=== PATIENT | female | born 1940 | race Hispanic/Latino ===

== ENCOUNTER 2016-08-28 06:02 | Day surgery (SDC) | payer MEDICARE ==
[2016-08-28] MEDS ORDERED: ECOTRIN PO ONE (06:25)
[2016-08-28] MEDS ORDERED: NACL 0.9% 500 ML 500 ML IV SCH (07:00)
[2016-08-28] MEDS ORDERED: HEPARIN 10,000 UNITS/10 ML ONE (08:32)
[2016-08-28] MEDS ORDERED: CALAN ONE (08:32)
[2016-08-28] MEDS ORDERED: HEPARIN/NS 5000 UNIT/500ML(CATH LAB) 1,000 ML IR ONE (08:32)
[2016-08-28] MEDS ORDERED: VERSED ONE (08:33)
[2016-08-28] MEDS ORDERED: NITROGLYCERIN SYRINGE 3 ML ONE (08:33)
[2016-08-28] MEDS ORDERED: SUBLIMAZE ONE (08:34)
[2016-08-28] MEDS ORDERED: XYLOCAINE 2% INFILTRATI ONE (08:35)
[2016-08-28] MEDS: XYLOCAINE 2% INFILTRATI ONE ×2 (08:47→08:50)
--- NOTE | 2016-08-28 09:49 | Cardiac Catherization Report ---
CARDIAC CATHETERIZATION REPORT REFERRING PHYSICIAN: Devora Caballero MD INDICATION FOR PROCEDURE: This is a pleasant 75-year-old female, infrequent chest pain, history of nonobstructive coronary disease, normal stress test, referred for cardiac catheterization by Dr. Kyung Caballero. Risks, benefits, alternatives discussed at length prior to obtaining informed consent. The patient did not have a good radial pulse, we used a groin approach. PROCEDURE IN DETAIL: The patient were prepped and draped in sterile fashion. An 8 mL of 2% lidocaine used to anesthetize the right groin. A standard 6 Welsh sheath used to cannulate the right common femoral artery via modified Seldinger technique. All exchanges performed to exchange a J-tip guidewire. JL3.5 catheter used to engage left main. No dampening or ventricularization. Cineangiography performed in all projections. JR4 catheter used to cross the aortic valve under fluoroscopic guidance. Left ventriculography performed in 30 MCKEON and 30 CROATIAN projections via hand injections, catheter flushed. Manual pullback performed with continuous pressure monitoring. Catheter used to engage the right coronary. No dampening or ventricularization. Cineangiography performed in multiple projections. Next, catheter removed from the body of wire, sheath removed. Manual pressure used to achieve hemostasis. DATA: The patient remained in normal sinus rhythm throughout the procedure. Aortic pressure is 150/60, LV pressure is 150, LVEDP of 18 to 20 mmHg. Left ventriculography revealed normal systolic performance. Estimated ejection fraction of 55-60%. No evidence of aortic stenosis. Total of 40 mL of Isovue was used. CORONARY ANATOMY: This is a right dominant system, left system is small, left main without significant disease. It bifurcates left anterior descending and left circumflex. Left circumflex is a moderate sized vessel, courses AV groove. No significant disease. Diminutive to AV groove circ. LAD is a small to moderate sized vessel, courses anterior intergroove, wraps around the apex, scattered luminal irregularities, but no significant obstructive disease identified in the LAD or diagonal system. Right coronary is a moderate sized vessel, courses AV groove, distally bifurcates in the posterior and posterolateral branch, no significant stenosis noted. There is a 30-40% mid right coronary stenosis noted, but no obstructive disease identified. CONCLUSIONS: 1. Mild to moderate nonobstructive coronary artery disease in this right dominant system with a maximal narrowing of 30-40% in the mid right coronary. 2. Normal left ventricular systolic performance, estimated ejection fraction of 55-60%. 3. No evidence of aortic stenosis and normal LVEDP. Recommend standard groin care, bed rest for 6 hours, medical management, risk factor modification. Results of procedure discussed at length with the patient and family and her . All questions were addressed. JOB# [id number] SBM/NTS
[2016-08-28 13:49] VITALS: BP 122/80
--- NOTE | 2016-08-28 14:08 | Short Stay Summary ---
Short Stay Documentation Date of service: 08/28/16 - History H&P: obtained from office - Allergies and Medications Current Medications: Allergies No Known Allergies Allergy (Verified 05/07/15 18:52) Home Medications Medication Instructions Recorded Confirmed Last Taken Type Arformoterol Tartrate [Brovana] 15 mcg IH DAILY 03/05/13 08/28/16 08/25/16 History FLUoxetine [PROzac] 20 mg PO QDAY 03/05/13 08/28/16 08/27/16 History Ipratropium [Atrovent NEB] 0.5 mg IH DAILY 03/05/13 08/28/16 08/27/16 History Losartan [Cozaar] 50 mg PO QDAY 03/05/13 08/28/16 08/27/16 History Metoprolol Xl [Metoprolol 25 mg PO QDAY 03/05/13 08/28/16 08/27/16 History SUCCINATE ER TAB] Rosuvastatin Calcium [Crestor] 10 mg PO HS 03/05/13 08/28/16 08/27/16 History Zolpidem [Ambien] 10 mg PO HS 03/05/13 08/28/16 08/27/16 History amLODIPine [Norvasc] 5 mg PO DAILY 03/05/13 08/28/16 08/27/16 History Tiotropium [Spiriva] 2 puff IH QDAY 05/07/15 08/28/16 08/27/16 History Aspirin EC [Aspirin Enteric Coated 81 mg PO QDAY 08/28/16 08/28/16 08/27/16 History TAB] Active Medications Sodium Chloride (Nacl 0.9% 500 Ml) 500 mls @ 50 mls/hr IV DIRECT VIKTORIA Stop: 08/28/16 16:59 Last Admin: 08/28/16 07:10 Dose: 50 mls/hr - Brief post op/procedure progress note Date of procedure: 08/28/16 Pre-op diagnosis: chest pain Procedure: left heart cath - Disposition Condition at discharge: Stable Disposition: DISCHARGED TO HOME OR SELFCARE - Discharge Diagnoses (1) Chest pain Status: Acute Qualifiers: Chest pain type: C (2) Non-occlusive coronary artery disease Status: Chronic (3) HTN (hypertension) Status: Chronic Qualifiers: Hypertension type: H (4) Diabetes Status: Chronic Qualifiers: Diabetes mellitus type: D Diabetes mellitus complication status: D Diabetes mellitus complication detail: D Diabetic retinopathy severity: D Proliferative retinopathy type: P Diabetes mellitus macular edema: D Diabetes mellitus hospital recruiter insulin use: D Laterality: L Chronic kidney disease stage: C (5) Hyperlipidemia Status: Chronic Qualifiers: Hyperlipidemia type: H Short Stay Discharge Plan Activity: advance as tolerated Weight Bearing Status: Weight Bear as Tolerated Diet: low fat, low cholesterol Wound: keep clean and dry Additional Instructions: Follow up with Income Tax Preparer in 1 week. Follow up with: PRIMARY MD GI [Primary Care Provider] - 7 Days PATRICA AMAYA MD [Staff Physician] - 7 Days Forms: CardCath PCI D/C Instructions
== END 2016-08-28 06:03 | disposition home or self-care (01) ==
LOC: OPU 06:02
PROVIDERS: ATTEND Internal Medicine
DX: I25.10 Atherosclerotic heart disease of native coronary artery without angina pectoris (principal); I10 Essential (primary) hypertension; E78.5 Hyperlipidemia, unspecified; E11.9 Type 2 diabetes mellitus without complications; J44.9 Chronic obstructive pulmonary disease, unspecified; Z79.899 Other long term (current) drug therapy
CPT/HCPCS: 93005; 93010; 93458; C1894; J1644; J2250; J3010; J7040; Q9967

== ENCOUNTER 2016-09-27 14:23 | Outpatient (CLI) | payer MEDICARE ==
--- NOTE | 2016-09-28 09:37 | Mammography Report ---
Bilateral mammogram: No previous studies are available. CAD study utilized. Findings: Predominance adipose tissue bilaterally. Benign calcifications bilaterally. There is cluster/group pleomorphic calcification noted at upper outer right breast. No mass. Normal axilla. Impression: Posterior/grouped calcification upper outer right breast. Recommend comparison with previous studies. If previous studies are not available spot magnification views recommended. BI-RADS CATEGORY: 0 = Needs additional imaging evaluation ACR BI-RADS MAMMOGRAPHIC CODES: 0 = Needs additional imaging evaluation; 1 = Negative; 2 = Benign; 3 = Probably benign; 4 = Suspicious; 5 = Malignant; 6 = Known biopsy-proven malignancy COMMENT: 1. Dense breast tissue, i.e., adenosis, fibrocystic changes, etc., may obscure an underlying neoplasm. 2. Approximately 10% of cancers are not detected with mammography. 3. A negative mammography report should not delay biopsy if a clinically suspicious mass is present. COMMENT: Patient follow-up letters are generated in [employer].
--- NOTE | 2016-09-28 10:25 | Mammography Report ---
BONE DENSITY STUDY: DEFINITIONS: BMD = Bone Mineral Density T-score = BMD related to mean peak bone mass of young adult (mean expressed in Standard Deviation) Z-score = Age matched BMD expressed in SD World Health Organization (WHO) Diagnostic Criteria Normal T-score > -1 SD Osteopenia T-score between -1 and -2.4 SD Osteoporosis T-score -2.5 SD or below FINDINGS: The weighted average BMD of lumbar spine L1-L4 is 0.910 with a T-score of -1.2. The weighted average BMD of hip is 0.743 with a T-score of -1.6. IMPRESSION: The patient's T-score is diagnostic for osteopenia and average relative risk for fracture. NOTE: BMD is not the only risk factor for fracture; also consider factors such as the patient's age, risk of falling, previous osteoporotic fracture, family history of osteoporotic fractures, current smoker, and low body weight. [place]'s triangle is a region of interest in femur, predominantly of trabecular bone. It is not a true anatomic site, and ISCD does not recommend its use clinically.
== END 2016-09-27 14:24 | disposition home or self-care (01) ==
LOC: MAMMO 14:23
PROVIDERS: ATTEND Obstetrics & Gynecology Gynecology
DX: Z12.31 Encounter for screening mammogram for malignant neoplasm of breast (principal); M85.88 Other specified disorders of bone density and structure, other site; N95.1 Menopausal and female climacteric states
CPT/HCPCS: 77080; G0202; 77067

== ENCOUNTER 2016-10-11 13:29 | Outpatient (CLI) | payer MEDICARE ==
--- NOTE | 2016-10-11 15:20 | Mammography Report ---
RIGHT DIGITAL DIAGNOSTIC MAMMOGRAM : 10/11/16 13:29:00 CLINICAL: Recalled for calcifications. COMPARISON:09/27/16 FINDINGS: ML and CC magnification views demonstrate a group of relatively large irregular but coarse calcifications in the upper-outer quadrant. No associated mass or architectural distortion. IMPRESSION: Probably benign calcifications. BI-RADS CATEGORY: 3 -- Probably Benign RECOMMENDATION: 6 month follow-up magnification views. ACR BI-RADS MAMMOGRAPHIC CODES: 0 = Needs additional imaging evaluation; 1 = Negative; 2 = Benign; 3 = Probably benign; 4 = Suspicious; 5 = Malignant; 6 = Known biopsy-proven malignancy COMMENT: 1. Dense breast tissue, i.e., adenosis, fibrocystic changes, etc., may obscure an underlying neoplasm. 2. Approximately 10% of cancers are not detected with mammography. 3. A negative mammography report should not delay biopsy if a clinically suspicious mass is present. COMMENT: Patient follow-up letters are generated by our [employer] application.
== END 2016-10-11 13:30 | disposition home or self-care (01) ==
LOC: MAMMO 13:29
PROVIDERS: ATTEND Obstetrics & Gynecology Gynecology
DX: R92.1 Mammographic calcification found on diagnostic imaging of breast (principal)
CPT/HCPCS: G0206-RT

== ENCOUNTER 2016-10-18 11:05 | Outpatient (CLI) | payer MEDICARE ==
--- NOTE | 2016-10-19 10:52 | PET Report ---
PET SB TO MT subsequent: HISTORY: Restaging of non-Hodgkin lymphoma, thoracic adenopathy. TECHNIQUE: 12.8 millicuries F-18 FDG was administered intravenously. Noncontrast CT images and PET images were obtained from the skull base to the proximal thighs. Fused images were reviewed on a workstation. The patient's blood glucose level measured 132. COMPARISON: 05/17/16. FINDINGS: BRAIN: physiologic FDG uptake in the imaged brain. NECK: physiologic FDG uptake. MEDIASTINUM: physiologic FDG uptake. LUNGS: physiologic FDG uptake. PLEURA/PERICARDIUM: physiologic FDG uptake. THORACIC LYMPH NODES: physiologic FDG uptake. HEPATOBILIARY: physiologic FDG uptake. Mean liver SUV measures 4.7 as compared to 4.2 on the previous study. PANCREAS: physiologic FDG uptake. SPLEEN: physiologic FDG uptake. ADRENAL GLANDS: physiologic FDG uptake. KIDNEYS/RENAL COLLECTING SYSTEMS: physiologic FDG uptake. BOWEL/MESENTERY: physiologic FDG uptake. PELVIC VISCERA: physiologic FDG uptake. ABDOMINAL/PELVIC LYMPH NODES: physiologic FDG uptake. MUSCULOSKELETAL: physiologic FDG uptake. IMPRESSION: Negative PET/CT. No evidence for disease recurrence. No change since 05/17/16.
== END 2016-10-18 11:06 | disposition home or self-care (01) ==
LOC: PET 11:05
PROVIDERS: ATTEND Internal Medicine Hematology & Oncology
DX: C85.92 Non-Hodgkin lymphoma, unspecified, intrathoracic lymph nodes (principal); R59.0 Localized enlarged lymph nodes
CPT/HCPCS: 78815; 82962; A9552

== ENCOUNTER 2016-11-13 14:53 | Outpatient (CLI) | payer MEDICARE ==
--- NOTE | 2016-11-13 15:52 | XRay Report ---
LUMBAR SPINE RADIOGRAPHS INDICATION: Compression fracture spine. COMPARISON: None similar. FINDINGS: AP, lateral and oblique lumbar spine radiographs demonstrate demineralized bones with preserved vertebral body stature and alignment. Mild lower thoracic and lower lumbar degenerative spurring. Moderate to severe L4-L5 and L5-S1 disc narrowing. Lower lumbar facet arthropathy also not excluded. Extensive atherosclerotic calcifications. No evidence of a pars defect. Intact SI joints. Nonobstructive bowel gas pattern. CONCLUSION: No acute radiographic abnormality with various degenerative changes noted, greatest lower lumbar, as described. Please correlate. Thank you for the opportunity to participate in this patient's care.
== END 2016-11-13 14:54 | disposition home or self-care (01) ==
LOC: XRAY 14:53
PROVIDERS: ATTEND Obstetrics & Gynecology Gynecology
DX: M47.897 Other spondylosis, lumbosacral region (principal); M48.57XA Collapsed vertebra, not elsewhere classified, lumbosacral region, initial encounter for fracture
CPT/HCPCS: 72110

== ENCOUNTER 2017-02-07 09:30 | Inpatient (IN) | payer MEDICARE ==
[2017-02-07] MEDS ORDERED: DUONEB *Not for PRN Use IH ONE (10:24)
[2017-02-07 10:33] LABS: Bacteria,Urine 1+ /HPF (Negative); Bilirubin,Urine NEG (Negative); Blood,Urine NEG (Negative); Ketones,Urine NEG (Negative); Leukocyte Esterase,Urine SM (Negative); Mucus,Urine FEW /HPF; Nitrite,Urine NEG (Negative); Urobilinogen,Urine < 2.0 mg/dL (<2.0)
[2017-02-07 10:41] LABS: Basophils % (Auto) 0.7 % (0.0-1.8); Eosinophils % (Auto) 3.2 % (0.0-4.3); Hematocrit 38.6 % (30.3-42.9); Hemoglobin 12.6 gm/dl (10.1-14.3); Mean Corpuscular HGB Conc 33 % (30-34); Mean Corpuscular Hemoglobin 29 pg (28-32); Mean Corpuscular Volume 90 fl (79-97); Platelet Count 263 K/mm3 (140-440); Red Blood Count 4.29 M/mm3 (3.65-5.03); Red Cell Distribution Width 14.7 % (13.2-15.2)
[2017-02-07 10:51] LABS: INR 1.02 (0.87-1.13)
[2017-02-07 10:52] LABS: Partial Thromboplastin Time < 20.0 Sec. (24.2-36.6)
[2017-02-07 10:58] LABS: Creatine Kinase MB 2.5 ng/mL (0.0-4.0)
--- NOTE | 2017-02-07 10:59 | XRay Report ---
AP CHEST: HISTORY: Dyspnea A left Nstnwr-p-Blyc has been inserted since 05/09/15. Heart size is normal. Pulmonary vascularity is borderline. The interstitium is prominent in both lungs but there is no evidence for consolidation, pleural effusion or pneumothorax. The bony structures are grossly intact. IMPRESSION: Chronic interstitial changes. No acute process.
[2017-02-07 11:00] LABS: Anion Gap 18 mmol/L; Blood Urea Nitrogen 17 mg/dL (7-17); Calcium 8.5 mg/dL (8.4-10.2); Carbon Dioxide 24 mmol/L (22-30); Chloride 99.1 mmol/L (98-107); Creatine Kinase 68 units/L (30-135); Glucose 139 mg/dL (65-100); Potassium 4.4 mmol/L (3.6-5.0); Sodium 137 mmol/L (137-145)
[2017-02-07 11:14] LABS: Alanine Aminotransferase 28 units/L (7-56); Albumin 4.1 g/dL (3.9-5); Albumin/Globulin Ratio 1.5 %; Alkaline Phosphatase 91 units/L (35-129); Total Protein 6.8 g/dL (6.3-8.2)
[2017-02-07 11:30] LABS: Bilirubin,Direct < 0.2 mg/dL (0-0.2)
[2017-02-07] MEDS ORDERED: LEVAQUIN 750MG/150ML 750 MG/150 ML BAG IV ONE (12:21)
--- NOTE | 2017-02-07 12:29 | Emergency Department Report ---
ED General Adult HPI - General Chief complaint: Dyspnea/Respdistress Stated complaint: ROZINA Time Seen by Provider: 02/07/17 10:13 Source: patient Mode of arrival: Wheelchair Limitations: Other - History of Present Illness Initial comments: Patient complains of shortness of breath. She has a history of COPD. She uses home that he lies or machine but has not taken her treatment today. She states that she has dyspnea on exertion. She states her abdomen is swelling that she doesn't "know about my legs". She denies history of congestive heart failure. She has a history of anxiety being treated with Prozac. She denies any recent fever or chills. She denies chest pain pressure or tightness. She denies any recent productive cough fever or chills. She sees Dr. Mitchell for her COPD. She is home O2 dependent. She states that she had to turn her oxygen up today because of shortness of breath. She does have a home pulse oximetry machine which she simply states read "in the 90s". Patient's symptoms are dyspnea R for 1-2 weeks. She states that she has not recently seen a physician. She does complain of dyspnea on exertion. -: Gradual, days(s), week(s) Consistency: intermittent Improves with: none Worsens with: other (exertion) Associated Symptoms: denies other symptoms - Related Data Home Medications Medication Instructions Recorded Confirmed Last Taken Arformoterol Tartrate [Brovana] 15 mcg IH DAILY 03/05/13 08/28/16 08/25/16 FLUoxetine [PROzac] 20 mg PO QDAY 03/05/13 08/28/16 08/27/16 Ipratropium [Atrovent NEB] 0.5 mg IH DAILY 03/05/13 08/28/16 08/27/16 Losartan [Cozaar] 50 mg PO QDAY 03/05/13 08/28/16 08/27/16 Metoprolol Xl [Metoprolol 25 mg PO QDAY 03/05/13 08/28/16 08/27/16 SUCCINATE ER TAB] Rosuvastatin Calcium [Crestor] 10 mg PO HS 03/05/13 08/28/16 08/27/16 Zolpidem [Ambien] 10 mg PO HS 03/05/13 08/28/16 08/27/16 amLODIPine [Norvasc] 5 mg PO DAILY 03/05/13 08/28/16 08/27/16 Tiotropium [Spiriva] 2 puff IH QDAY 05/07/15 08/28/16 08/27/16 Aspirin EC [Aspirin Enteric Coated 81 mg PO QDAY 08/28/16 08/28/16 08/27/16 TAB] Allergies Allergy/AdvReac Type Severity Reaction Status Date / Time No Known Allergies Allergy Verified 02/07/17 09:31 ED Review of Systems ROS: Stated complaint: ROZINA Other details as noted in HPI Constitutional: denies: chills, fever Eyes: denies: eye pain, eye discharge, vision change ENT: denies: ear pain, throat pain Respiratory: shortness of breath, SOB with exertion. denies: cough, wheezing Cardiovascular: denies: chest pain, palpitations Endocrine: no symptoms reported Gastrointestinal: denies: abdominal pain, nausea, diarrhea Genitourinary: denies: urgency, dysuria, discharge Musculoskeletal: denies: back pain, joint swelling, arthralgia Skin: denies: rash, lesions Neurological: denies: headache, weakness, paresthesias Psychiatric: denies: anxiety, depression Hematological/Lymphatic: denies: easy bleeding, easy bruising ED Past Medical Hx - Past Medical History Hx Hypertension: Yes (1997) Hx Heart Attack/AMI: No Hx Congestive Heart Failure: Yes Hx Deep Vein Thrombosis: No Hx GERD: Yes (2008) Hx Renal Disease: No Hx Arthritis: Yes Hx Seizures: No Hx Asthma: Yes Hx COPD: Yes Hx Tuberculosis: No Hx Dementia: Yes Hx HIV: No Additional medical history: The patient has a history of non-Hodgkin's lymphoma. She's had a recent PET scan which was negative. She also had a cardiac catheterization in August which showed mild to moderate nonobstructive right coronary disease and a normal ejection fraction. - Surgical History Hx Coronary Stent: No Hx Appendectomy: Yes Additional Surgical History: Hysterectomy. RIGHT KNEE SURGERY - Social History Smoking Status: Former Smoker - Medications Home Medications: Home Medications Medication Instructions Recorded Confirmed Last Taken Type Arformoterol Tartrate [Brovana] 15 mcg IH DAILY 03/05/13 08/28/16 08/25/16 History FLUoxetine [PROzac] 20 mg PO QDAY 03/05/13 08/28/16 08/27/16 History Ipratropium [Atrovent NEB] 0.5 mg IH DAILY 03/05/13 08/28/16 08/27/16 History Losartan [Cozaar] 50 mg PO QDAY 03/05/13 08/28/16 08/27/16 History Metoprolol Xl [Metoprolol 25 mg PO QDAY 03/05/13 08/28/16 08/27/16 History SUCCINATE ER TAB] Rosuvastatin Calcium [Crestor] 10 mg PO HS 03/05/13 08/28/16 08/27/16 History Zolpidem [Ambien] 10 mg PO HS 03/05/13 08/28/16 08/27/16 History amLODIPine [Norvasc] 5 mg PO DAILY 03/05/13 08/28/16 08/27/16 History Tiotropium [Spiriva] 2 puff IH QDAY 05/07/15 08/28/16 08/27/16 History Aspirin EC [Aspirin Enteric Coated 81 mg PO QDAY 08/28/16 08/28/16 08/27/16 History TAB] ED Physical Exam - General Limitations: Other General appearance: alert, in no apparent distress - Head Head exam: Present: atraumatic, normocephalic - Eye Eye exam: Present: normal appearance, PERRL, EOMI. Absent: scleral icterus - ENT ENT exam: Present: normal exam, mucous membranes moist - Neck Neck exam: Present: normal inspection. Absent: tenderness, meningismus - Respiratory Respiratory exam: Present: decreased breath sounds. Absent: respiratory distress - Cardiovascular Cardiovascular Exam: Present: regular rate, normal rhythm. Absent: systolic murmur, diastolic murmur, rubs, gallop - GI/Abdominal GI/Abdominal exam: Present: soft, normal bowel sounds. Absent: distended, tenderness, guarding, rebound, rigid - Extremities Exam Extremities exam: Present: normal inspection - Back Exam Back exam: Present: normal inspection - Neurological Exam Neurological exam: Present: alert, oriented X3, CN II-XII intact. Absent: motor sensory deficit - Psychiatric Psychiatric exam: Present: normal affect, normal mood - Skin Skin exam: Present: warm, dry, intact, normal color. Absent: rash ED Course Vital Signs 02/07/17 09:31 Temperature 98 F Pulse Rate 62 Respiratory 38 H Rate Blood Pressure 188/74 O2 Sat by Pulse 95 Oximetry - Reevaluation(s) Reevaluation #1: Patient was given a DuoNeb with some improvement. Her lactic S level was somewhat elevated at 2.2. Blood cultures are obtained. She was given a dose of Levaquin and Solu-Medrol. She is referred to Dr. Cota further care and evaluation. I am going to add a d-dimer to her workup. 02/07/17 12:30 02/07/17 12:31 ED Medical Decision Making - Lab Data Result diagrams: 02/07/17 10:37 02/07/17 10:37 Critical care attestation.: If time is entered above; I have spent that time in minutes in the direct care of this critically ill patient, excluding procedure time. ED Disposition Clinical Impression: COPD with acute exacerbation, Elevated lactic acid level Coronary artery disease Qualifiers: Coronary Disease-Associated Artery/Lesion type: [place] artery [place] vs. transplanted heart: [place] heart Associated angina: without angina Qualified Code(s): I25.10 - Atherosclerotic heart disease of [place] coronary artery without angina pectoris Disposition: OP ADMIT IP TO THIS HOSP Is pt being admited?: Yes Does the pt Need Aspirin: Yes Condition: Stable Instructions: Chronic Obstructive Pulmonary Disease (ED) Referrals: OZZIE AMAYA MD [Primary Care Provider] - 3-5 Days
[2017-02-07] MEDS ORDERED: BABY ASPIRIN PO ONE (12:35)
[2017-02-07] MEDS ORDERED: VANCOMYCIN VIAL IV ONE (14:11)
[2017-02-07] MEDS ORDERED: TYLENOL PO PRN (14:11)
--- NOTE | 2017-02-07 14:16 | History and Physical Report ---
History of Present Illness Chief complaint: I cant catch my breath and i feel weak History of present illness: 76 YO Female with HTN, COPD, CHF, GERD, OA, Asthma, Dementia, NHL presents to ED for evaluation. Pt states that she has experienced weakness and shortness of breath for the past 10 days, with worsening symptoms over the past 1 day. Pt acknowledges dypsnea on exertion, but denies fever, chills, CP, Palpitations, Productive cough, skin rash, recent ill contacts, urgency, frequency. Pt seen and evaluated in ED and found to have bradycardia with heart rate of 45 and LBBB. Past History Past Medical History: arthritis, cancer, COPD, GERD, heart failure, hypertension Past Surgical History: appendectomy, hysterectomy, total knee replacement, Other (cardiac cath) Social history: , lives with family. denies: smoking, alcohol abuse, prescription drug abuse, IV drug use Family history: hypertension Medications and Allergies Allergies Allergy/AdvReac Type Severity Reaction Status Date / Time No Known Allergies Allergy Verified 02/07/17 09:31 Home Medications Medication Instructions Recorded Confirmed Last Taken Type Arformoterol Tartrate [Brovana] 15 mcg IH BID 03/05/13 02/07/17 02/07/17 History FLUoxetine [PROzac] 20 mg PO QDAY 03/05/13 02/07/17 02/07/17 History Ipratropium [Atrovent NEB] 0.5 mg IH DAILY 03/05/13 02/07/17 08/27/16 History Losartan [Cozaar] 50 mg PO QDAY 03/05/13 02/07/17 02/07/17 History Metoprolol Xl [Metoprolol 25 mg PO QDAY 03/05/13 02/07/17 02/07/17 History SUCCINATE ER TAB] Rosuvastatin Calcium [Crestor] 10 mg PO HS 03/05/13 02/07/17 02/07/17 History Zolpidem [Ambien] 10 mg PO HS 03/05/13 02/07/17 02/05/17 History amLODIPine [Norvasc] 5 mg PO DAILY 03/05/13 02/07/17 02/07/17 History Tiotropium [Spiriva] 2 puff IH QDAY 05/07/15 02/07/17 08/27/16 History Aspirin EC [Aspirin Enteric Coated 81 mg PO QDAY 08/28/16 02/07/17 02/07/17 History TAB] Acetaminophen/Diphenhydramine 1 each PO PRN PRN 02/07/17 02/07/17 Unknown History [Tylenol Pm Ex-Strength Caplet] Review of Systems Constitutional: fatigue, weakness, malaise, no weight loss, no weight gain Ears, nose, mouth and throat: no ear pain, no ear discharge, no tinnitis, no decreased hearing, no nose pain Breasts: no swelling, no mass Cardiovascular: no chest pain, no orthopnea, no palpitations Respiratory: shortness of breath, dyspnea on exertion, no cough, no cough with sputum, no excessive sputum Gastrointestinal: no nausea, no vomiting, no diarrhea, no constipation, no change in bowel habits Genitourinary Female: no dysmenorrhea, no pelvic pain, no flank pain, no menorrhagia Rectal: no pain, no incontinence, no bleeding Musculoskeletal: no neck stiffness, no neck pain, no shooting arm pain, no arm numbness/tingling, no low back pain, no shooting leg pain Integumentary: no rash, no pruritis, no redness, no sores, no wounds Neurological: no paralysis, no weakness, no parathesias, no numbness, no tingling Psychiatric: no memory loss, no change in sleep habits, no sleep disturbances, no insomnia, no hypersomnia, no change in appetite, no change in libido Endocrine: no heat intolerance, no polyphagia, no excessive thirst, no polydipsia, no polyuria, no nocturia Hematologic/Lymphatic: no easy bruising, no easy bleeding Allergic/Immunologic: no urticaria, no allergic rhinitis, no wheezing Exam - Constitutional Vitals: Temp Pulse Resp BP Pulse Ox 98 F 50 L 17 133/75 98 02/07/17 09:31 02/07/17 13:33 02/07/17 13:33 02/07/17 13:33 02/07/17 13:33 General appearance: Present: mild distress - EENT Eyes: Present: PERRL ENT: hearing intact, clear oral mucosa - Neck Neck: Present: supple, normal ROM - Respiratory Respiratory effort: labored Respiratory: bilateral: diminished - Cardiovascular Heart Sounds: Present: S1 & S2. Absent: rub, click - Extremities Extremities: pulses symmetrical, No edema Extremity abnormal: edema Peripheral Pulses: abnormal (Capillary refill: 3/5 seconds) - Abdominal General gastrointestinal: Present: soft, non-tender, non-distended, normal bowel sounds Female genitourinary: Present: normal - Rectal Rectal Exam: normal exam-external/orifice - Integumentary Integumentary: Present: clear, dry, clammy, decreased turgor - Musculoskeletal Musculoskeletal: generalized weakness - Psychiatric Psychiatric: appropriate mood/affect, intact judgment & insight - Neurologic Neurologic: CNII-XII intact, moves all extremities Results - Labs CBC & Chem 7: 02/07/17 10:37 02/07/17 10:37 Labs: Abnormal lab results 02/07/17 02/07/17 02/07/17 Range/Units 10:37 10:37 10:37 WBC 14.0 H (4.5-11.0) K/mm3 Lymph % (Auto) 12.6 L (13.4-35.0) % Terrell % (Auto) 8.5 H (0.0-7.3) % Terrell # 1.2 H (0.0-0.8) K/mm3 Seg Neutrophils % 75.0 H (40.0-70.0) % Seg Neutrophils # 10.5 H (1.8-7.7) K/mm3 APTT (24.2-36.6) Sec. Creatinine 0.5 L (0.7-1.2) mg/dL Glucose 139 H (65-100) mg/dL Lactic Acid 2.20 H* (0.7-2.0) mmol/L NT-Pro-B Natriuret Pep (0-900) pg/mL 02/07/17 02/07/17 Range/Units 10:37 10:37 WBC (4.5-11.0) K/mm3 Lymph % (Auto) (13.4-35.0) % Terrell % (Auto) (0.0-7.3) % Terrell # (0.0-0.8) K/mm3 Seg Neutrophils % (40.0-70.0) % Seg Neutrophils # (1.8-7.7) K/mm3 APTT < 20.0 L (24.2-36.6) Sec. Creatinine (0.7-1.2) mg/dL Glucose (65-100) mg/dL Lactic Acid (0.7-2.0) mmol/L NT-Pro-B Natriuret Pep 1948 H (0-900) pg/mL Assessment and Plan - Patient Problems (1) Sepsis Current Visit: Yes Status: Acute Qualifiers: Sepsis type: S Plan to address problem: IV abx, IVF, monitor uop q shift, serial lactic acid, blood cultures. (2) COPD (chronic obstructive pulmonary disease) Current Visit: Yes Status: Acute Qualifiers: COPD type: C Chronic bronchitis type: C Emphysema type: E Plan to address problem: Supplemental oxygen, nebs, aspiration precautions, (3) UTI (urinary tract infection) Current Visit: Yes Status: Acute Qualifiers: Urinary tract infection type: U Hematuria presence: H Indwelling urinary catheter type: I Encounter type: E Plan to address problem: IV abx, supportive care, (4) Acute respiratory failure Current Visit: Yes Status: Acute Qualifiers: Respiratory failure complication: R Plan to address problem: Supplemental oxygen, nebs, aspiration precautions, NIPPV as clinically indicated , (5) CHF (congestive heart failure) Current Visit: Yes Status: Acute Qualifiers: Congestive heart failure type: C Congestive heart failure chronicity: C Plan to address problem: fluid restriction, monitor uop q shift, afterload reduction, resume home medications. (6) Sinus bradycardia Current Visit: Yes Status: Acute Plan to address problem: LBBB. Remote telemetry monitoring, cardiology consulted. (7) DVT prophylaxis Current Visit: Yes Status: Acute
--- NOTE | 2017-02-07 14:22 | Admit Criteria Form ---
Admission Criteria Documentation: SEPSIS and OTHER FEBRILE ILLNESS, W/O FOCAL INFECTION Clinical Indications for Admission to Inpatient Care ( Place 'X' for any and all applicable criteria): Admission to inpatient status for two midnights or more is indicated for ANY ONE of the following (1)(2)(3): [X] I. Bacteremia [ ]II. Suspected or identified specific infection requiring hospitalization (eg, meningitis, endocarditis) [ ]III. Hemodynamic instability [ ]IV. Temperature > 104.9 0F (40.5 0C) (oral) [ ]V. Core (rectal) temperature < 95 0F (35 0C) (eg, thought to be due to infection) [ ]. Altered mental status that is severe or persistent [ ]VII. Failure or unavailability of outpatient antimicrobial treatment [ ]VIII. Hypoxemia [ ]IX. Seizures [ ]X. New coagulopathy (eg, reduced platelet count consistent with disseminated intravascular coagulation) [ ]XI. Inpatient admission required [B] rather than observation care because of 1 or more of the following 1) Tachypnea not responsive to outpatient or observation treatment 2) Metabolic disorder (eg, hypoglycemia, hyperglycemia, metabolic acidosis ) that persists despite outpatient and observation care treatment 3) Evidence of end-organ dysfunction (eg, rising creatinine, myocardial ischemia, rising liver function tests) that is severe or persists despite observation care treatment 4) Temperature > 103.1 0F (39.5 0C) (oral) that is not responsive to observation care treatment 5) Dehydration that is severe or persistent 6) Parenteral antimicrobial regimen that must be implemented on inpatient basis (eg, infusion or monitoring needs beyond capabilities of outpatient parenteral therapy) 7) Strict or protective (eg, laminar flow) isolation 8) Other condition, treatment or monitoring requiring inpatient admission Extended stay beyond goal length of stay may be needed for(1)(3) [ ]a) Persistent Hypotension [ ]b) Positive blood cultures [ ]c) Lack of improvement on antimicrobial treatment (eg, continued fever) [ ]d) Active comorbid illness (eg, heart failure, renal failure) [ ]e) High-risk febrile neutropenia [ ]f) Insufficient oral intake [ ]g) insufficient oral intake The original [employer] content created by [employer] has been revised. The portions of the content which have been revised are identified through the use of italic text or in bold, and [employer] has neither reviewed nor approved the modified material. All other unmodified content is copyright [facility], [place]. Please see references footnoted in the original [facility] edition 2017 Admission Criteria Met: Yes
[2017-02-07] MEDS ORDERED: VANCOMYCIN PHARMACY TO DOSE IV SCH (15:00)
[2017-02-07] MEDS ORDERED: NACL 0.9% 1000 ML IV ONE (15:00)
[2017-02-07] MEDS ORDERED: ZOSYN/NS 4.5GM/100ML 4.5 GM/100 ML VIAL IV ONE (15:07)
[2017-02-07] MEDS: ZOSYN/NS 4.5GM/100ML 4.5 GM/100 ML VIAL IV SCH (15:15)
[2017-02-07] MEDS ORDERED: NACL 0.9% IV ONE (15:30)
[2017-02-07] MEDS: VANCOMYCIN 1,250 MG in NACL 0.9% 250ML 250 ML IV SCH (16:09)
[2017-02-07] MEDS ORDERED: Fluarix Quad 2017-2018(36 MOS+) IM ONE (16:42)
[2017-02-07] MEDS: PROVENTIL IH PRN (20:18)
[2017-02-08] MEDS: ZOSYN/NS 4.5GM/100ML 4.5 GM/100 ML VIAL IV SCH ×4 (00:26→22:44)
[2017-02-08] MEDS: PROVENTIL IH PRN (07:49)
--- NOTE | 2017-02-08 08:46 | Consultation ---
History of Present Illness Consult date: 02/08/17 Requesting physician: JULIANNA AKINS Consult reason: bradycardia History of present illness: The patient is a 76 year old female who is followed by Dr. Caballero in the office with a history of COPD on home O2, hypertension, non-obstructive CAD who presented with complaints of fatigue and worsening shortness of breath and dyspnea on exertion for the past week and a half. She denies any chest pain, palpitations, nausea, vomiting or diaphoresis. Troponin negative x 2. BNP 1946. CXR shows chronic interstitial changes. Lactic acid and WBC elevated. LHC done showed 30-40% mid RCA lesion but otherwise normal coronaries. Echo done 2016 showed EF 55%, mild-moderate mitral stenosis (mean gradient 7.83), mild MR , moderate TR, RVSP 39 mmHg. Past History Past Medical History: arthritis, cancer, COPD, GERD, hypertension, other (non- obstructive CAD) Past Surgical History: appendectomy, hysterectomy, total knee replacement Social history: , lives with family. denies: smoking, alcohol abuse, prescription drug abuse, IV drug use Family history: hypertension Medications and Allergies Allergies Allergy/AdvReac Type Severity Reaction Status Date / Time No Known Allergies Allergy Verified 02/07/17 09:31 Home Medications Medication Instructions Recorded Confirmed Last Taken Type Arformoterol Tartrate [Brovana] 15 mcg IH BID 03/05/13 02/07/17 02/07/17 History FLUoxetine [PROzac] 20 mg PO QDAY 03/05/13 02/07/17 02/07/17 History Ipratropium [Atrovent NEB] 0.5 mg IH DAILY 03/05/13 02/07/17 08/27/16 History Losartan [Cozaar] 50 mg PO QDAY 03/05/13 02/07/17 02/07/17 History Metoprolol Xl [Metoprolol 25 mg PO QDAY 03/05/13 02/07/17 02/07/17 History SUCCINATE ER TAB] Rosuvastatin Calcium [Crestor] 10 mg PO HS 03/05/13 02/07/17 02/07/17 History Zolpidem [Ambien] 10 mg PO HS 03/05/13 02/07/17 02/05/17 History amLODIPine [Norvasc] 5 mg PO DAILY 0902/07/17 02/07/17 History Tiotropium [Spiriva] 2 puff IH QDAY 05/07/15 02/07/17 08/27/16 History Aspirin EC [Aspirin Enteric Coated 81 mg PO QDAY 08/28/16 02/07/17 02/07/17 History TAB] Acetaminophen/Diphenhydramine 1 each PO PRN PRN 02/07/17 02/07/17 Unknown History [Tylenol Pm Ex-Strength Caplet] Active Meds: Active Medications Acetaminophen (Tylenol) 650 mg PO Q4H PRN PRN Reason: Pain MILD(1-3)/Fever >100.5/LOONEY Albuterol (Proventil) 2.5 mg IH Q4HRT PRN PRN Reason: Shortness Of Breath Last Admin: 02/08/17 07:49 Dose: 2.5 mg Albuterol/Ipratropium (Duoneb *Not For Prn Use*) 1 ampul IH BIDRT [facility] Piperacillin Sod/Tazobactam Sod (Zosyn/Ns 4.5gm/100ml) 4.5 gm in 100 mls @ 200 mls/hr IV Q8H [facility] PRN Reason: Protocol Last Admin: 02/07/17 15:15 Dose: 200 mls/hr Sodium Chloride (Nacl 0.9% 1000 Ml) 2,720 mls @ 100.741 mls/hr IV ONCE ONE Stop: 02/08/17 18:29 Last Admin: 02/08/17 00:28 Dose: 100.741 mls/hr Vancomycin HCl 1,250 mg/ (Sodium Chloride) 262.5 mls @ 131.25 mls/hr IV Q12H [facility] Last Admin: 02/07/17 16:09 Dose: 131.25 mls/hr Vancomycin HCl (Vancomycin Pharmacy To Dose) 1 each IV PKCONSULT [facility] PRN Reason: Protocol Review of Systems Constitutional: fatigue, no fever, no chills Ears, nose, mouth and throat: no nasal congestion, no nasal discharge, no sinus pressure Cardiovascular: shortness of breath, dyspnea on exertion, no chest pain, no palpitations, no leg edema Respiratory: shortness of breath, dyspnea on exertion, no cough, no congestion, no wheezing Gastrointestinal: no abdominal pain, no nausea, no vomiting, no diarrhea Genitourinary Female: no dysuria, no urgency Musculoskeletal: no neck stiffness, no neck pain, no myalgias Neurological: no parathesias, no numbness, no tingling, no headaches Endocrine: no cold intolerance, no heat intolerance Hematologic/Lymphatic: no easy bruising, no easy bleeding Allergic/Immunologic: no urticaria, no wheezing Physical Examination Last Vital Signs Temp 97.6 F 02/08/17 09:57 Pulse 47 L 02/08/17 09:57 Resp 20 02/08/17 09:57 BP 132/48 02/08/17 09:57 Pulse Ox 95 02/08/17 08:23 General appearance: no acute distress, obese HEENT: Positive: Normocephaly, Mucus Membranes Moist Neck: Positive: neck supple, trachea midline Cardiac: Positive: Reg Rate and Rhythm, S1/S2 Lungs: Positive: clear to auscultation Neuro: Positive: Grossly Intact Abdomen: Positive: Soft, Active Bowel Sounds. Negative: Tender Skin: Positive: Clear. Negative: Rash Extremities: Present: normal. Absent: edema Results 02/07/17 10:37 02/08/17 09:24 - Imaging and Cardiology Echo: report reviewed (07/2016: EF 55%, mild-moderate mitral stenosis (mean gradient 7.83), mild MR, moderate TR, RVSP 39 mmHg) EKG: image reviewed EKG interpretations - Telemetry EKG Rhythm: Sinus Bradycardia - EKG Sinus rhythms and dysrhythmias: sinus bradycardia Repolarization changes or abnormalities: Q-T interval prolongation Assessment and Plan Shortness of breath Echo 07/2016: EF 55%, mild-moderate MS (mean gradient 7.83), mild MR, moderate TR, RVSP 39 mmHg Recommend pulmonology consultation given COPD Sinus bradycardia Asymptomatic Metoprolol on hold Check BMP, magnesium level, TSH, free T4 Prolonged QT interval Avoid QT prolonging medications (pt. was on prozac at home) Serial EKGs Elevated lactic acid Blood cultures pending Antibiotics per primary COPD on home O2 Nonobstructive CAD Cath 08/2016: 30-40% mid RCA lesion, otherwise normal coronaries ASA/statin Hypertension Hyperlipidemia Obtain BMP, magnesium level, TSH, free T4. Avoid AV blocking medications. Serial EKGs to monitor QT interval. Recommend pulmonary evaluation given COPD. The patient has been seen in conjunction with Dr. Geller who agrees with the assessment and plan of care. Thank you Dr. Akins for allowing us to participate in the care of this patient.
[2017-02-08] MEDS: BROVANA NEBU IH SCH ×3 (09:10→20:18)
[2017-02-08] MEDS ORDERED: NON-FORMULARY (Acetaminophen/Diphenhydramine [Tylenol Pm Ex-Strength Caplet] 1 EACH) PO PRN (09:56)
[2017-02-08] MEDS ORDERED: TOPROL XL PO SCH (10:00)
[2017-02-08 11:14] LABS: Alanine Aminotransferase 33 units/L (7-56); Albumin 3.8 g/dL (3.9-5); Albumin/Globulin Ratio 1.5 %; Alkaline Phosphatase 82 units/L (35-129); Anion Gap 25 mmol/L; BUN/Creatinine Ratio 31.66; Blood Urea Nitrogen 19 mg/dL (7-17); Calcium 8.6 mg/dL (8.4-10.2); Carbon Dioxide 18 mmol/L (22-30); Chloride 98.5 mmol/L (98-107); Glucose 224 mg/dL (65-100); Sodium 137 mmol/L (137-145); Total Protein 6.3 g/dL (6.3-8.2)
[2017-02-08] MEDS ORDERED: Fluarix Quad 2017-2018(36 MOS+) IM ONE (12:00)
[2017-02-08] MEDS: DUONEB *Not for PRN Use IH SCH ×2 (13:46→20:18)
--- NOTE | 2017-02-08 15:38 | Query- Heart Failure ---
Bebeto Munoz Cipriano Date:___02/08/2017 Insole Stiffener/CDS:___Francie Phone#:___[phone] Exercise your independent professional judgment when responding to query. Questions asked do not imply a particular answer is desired or expected. We greatly appreciate your clarification on this issue. Clinical Documentation States: 76 Year old female was admitted on 02/07/2017 for weakness and shortness of breath for the past 10 days. The IM H&P note states "(5) CHF (congestive heart failure) Current Visit: Yes Status: Acute Qualifiers: Congestive heart failure type: C Congestive heart failure chronicity: C Plan to address problem: fluid restriction, monitor uop q shift, afterload reduction, resume home medications." Clinical Findings Show: BNP: 1946 If possible, Please Clarify if you mean: Acuity: [x ] Acute [ ] Acute on Chronic [ ] Chronic Type: [x ] Systolic Heart Failure [ ] Diastolic Heart Failure [ ] Combined Heart Failure [ ] Other: Present on Admission: [ x] Yes (Y) [ ] Clinically undeterminable (W) [ ] No (N) Please also document response in your Progress Notes and/or Discharge Summary and indicate if the condition was present on admission. MARLYS
[2017-02-08] MEDS: HALFPRIN EC PO SCH (15:59)
[2017-02-08] MEDS: PROzac PO SCH (15:59)
[2017-02-08] MEDS: COZAAR PO SCH (16:08)
[2017-02-08] MEDS: NORVASC PO SCH (16:13)
[2017-02-08] MEDS: VANCOMYCIN 1,250 MG in NACL 0.9% 250ML 250 ML IV SCH ×2 (16:48)
--- NOTE | 2017-02-08 17:08 | Progress Note ---
Assessment and Plan Assessment and plan: Sepsis COPD exacerbation Interstitial pneumonia History of cancer on chemotherapy CAD Hypertension - Patient is on IV Solu-Medrol, oxygen support, IV antibiotics - Cardiology consult appreciated - Pulmonary and psych consult placed - Appropriate home medications resumed DVT prophylaxis Disposition - Continue inpatient care History Interval history: Patient was seen and evaluated this morning, patient is complaining shortness of breath, denied chest pain. Hospitalist Physical - Physical exam Narrative exam: Not in cardiopulmonary distress. The patient is obese. Vital signs as documented. Head exam is unremarkable. No scleral icterus . Neck is without jugular venous distension, thyromegaly, or carotid bruits. Lungs are decrease air entry on the lower lung zones and wheezing. Cardiac exam reveals regular rate and Rhythm. First and second heart sounds normal. No murmurs, rubs or gallops. Abdominal exam reveals normal bowel sounds, no masses, no organomegaly and no aortic enlargement. Extremities are nonedematous and both femoral and pedal pulses are normal. [employer] ATTENDANT: Alert and oriented 3. No focal weakness. - Constitutional Vitals: Temp Pulse Resp BP Pulse Ox 97.6 F 44 L 20 136/56 95 02/08/17 09:57 02/08/17 16:13 02/08/17 09:57 02/08/17 16:13 02/08/17 08:23 General appearance: Present: no acute distress, obese Results - Labs CBC & Chem 7: 02/07/17 10:37 02/08/17 09:24 Labs: Laboratory Last Values WBC 14.0 K/mm3 (4.5-11.0) H 02/07/17 10:37 RBC 4.29 M/mm3 (3.65-5.03) 02/07/17 10:37 Hgb 12.6 gm/dl (10.1-14.3) 02/07/17 10:37 Hct 38.6 % (30.3-42.9) 02/07/17 10:37 MCV 90 fl (79-97) 02/07/17 10:37 MCH 29 pg (28-32) 02/07/17 10:37 MCHC 33 % (30-34) 02/07/17 10:37 RDW 14.7 % (13.2-15.2) 02/07/17 10:37 Plt Count 263 K/mm3 (140-440) 02/07/17 10:37 Lymph % (Auto) 12.6 % (13.4-35.0) L 02/07/17 10:37 Rogers % (Auto) 8.5 % (0.0-7.3) H 02/07/17 10:37 Eos % (Auto) 3.2 % (0.0-4.3) 02/07/17 10:37 Baso % (Auto) 0.7 % (0.0-1.8) 02/07/17 10:37 Lymph # 1.8 K/mm3 (1.2-5.4) 02/07/17 10:37 Rogers # 1.2 K/mm3 (0.0-0.8) H 02/07/17 10:37 Eos # 0.4 K/mm3 (0.0-0.4) 02/07/17 10:37 Baso # 0.1 K/mm3 (0.0-0.1) 02/07/17 10:37 Seg Neutrophils % 75.0 % (40.0-70.0) H 02/07/17 10:37 Seg Neutrophils # 10.5 K/mm3 (1.8-7.7) H 02/07/17 10:37 PT 13.9 Sec. (12.2-14.9) 02/07/17 10:37 INR 1.02 (0.87-1.13) 02/07/17 10:37 APTT < 20.0 Sec. (24.2-36.6) L 02/07/17 10:37 D-Dimer 193.52 ng/mlDDU (0-234) 02/07/17 10:37 Sodium 137 mmol/L (137-145) 02/08/17 09:24 Potassium 4.0 mmol/L (3.6-5.0) 02/08/17 09:24 Chloride 98.5 mmol/L (98-107) 02/08/17 09:24 Carbon Dioxide 18 mmol/L (22-30) L 02/08/17 09:24 Anion Gap 25 mmol/L 02/08/17 09:24 BUN 19 mg/dL (7-17) H 02/08/17 09:24 Creatinine 0.6 mg/dL (0.7-1.2) L 02/08/17 09:24 Estimated GFR > 60 ml/min 02/08/17 09:24 BUN/Creatinine Ratio 31.66 % 02/08/17 09:24 Glucose 224 mg/dL (65-100) H 02/08/17 09:24 Lactic Acid 5.00 mmol/L (0.7-2.0) H* 02/07/17 20:31 Calcium 8.6 mg/dL (8.4-10.2) 02/08/17 09:24 Magnesium 1.50 mg/dL (1.7-2.3) L 02/08/17 09:24 Total Bilirubin 0.40 mg/dL (0.1-1.2) 02/08/17 09:24 Direct Bilirubin < 0.2 mg/dL (0-0.2) 02/07/17 10:37 AST 28 units/L (5-40) 02/08/17 09:24 ALT 33 units/L (7-56) 02/08/17 09:24 Alkaline Phosphatase 82 units/L (35-129) 02/08/17 09:24 Total Creatine Kinase 68 units/L (30-135) 02/07/17 10:37 CK-MB (CK-2) 2.5 ng/mL (0.0-4.0) 02/07/17 10:37 CK-MB (CK-2) Rel Index 3.6 (0-4) 02/07/17 10:37 Troponin T < 0.010 ng/mL (0.00-0.029) 02/07/17 13:11 NT-Pro-B Natriuret Pep 1948 pg/mL (0-900) H 02/07/17 10:37 Total Protein 6.3 g/dL (6.3-8.2) 02/08/17 09:24 Albumin 3.8 g/dL (3.9-5) L 02/08/17 09:24 Albumin/Globulin Ratio 1.5 % 02/08/17 09:24 TSH 1.080 mlU/mL (0.270-4.200) 02/08/17 09:24 Free T4 0.96 ng/dL (0.76-1.46) 02/08/17 09:24 Urine Color Yellow (Yellow) 02/07/17 10:15 Urine Turbidity Clear (Clear) 02/07/17 10:15 Urine pH 5.0 (5.0-7.0) 02/07/17 10:15 Ur Specific [place] 1.017 (1.003-1.030) 02/07/17 10:15 Urine Protein 100 mg/dl mg/dL (Negative) 02/07/17 10:15 Urine Glucose (UA) Neg mg/dL (Negative) 02/07/17 10:15 Urine Ketones Neg mg/dL (Negative) 02/07/17 10:15 Urine Blood Neg (Negative) 02/07/17 10:15 Urine Nitrite Neg (Negative) 02/07/17 10:15 Urine Bilirubin Neg (Negative) 02/07/17 10:15 Urine Urobilinogen < 2.0 mg/dL (<2.0) 02/07/17 10:15 Ur Leukocyte Esterase Sm (Negative) 02/07/17 10:15 Urine WBC (Auto) 5.0 /HPF (0.0-6.0) 02/07/17 10:15 Urine RBC (Auto) 2.0 /HPF (0.0-6.0) 02/07/17 10:15 U Epithel Cells (Auto) 1.0 /HPF (0-13.0) 02/07/17 10:15 Urine Bacteria (Auto) 1+ /HPF (Negative) 02/07/17 10:15 Urine Mucus Few /HPF 02/07/17 10:15 Blood Type AB POSITIVE 02/07/17 16:46 Antibody Screen Negative 02/07/17 16:46
[2017-02-08] MEDS: LOVENOX SUB-Q SCH (21:03)
[2017-02-08] MEDS ORDERED: NON-FORMULARY (Rosuvastatin Calcium [Crestor] 10 MG) PO SCH (22:00)
[2017-02-08] MEDS: AMBIEN PO SCH (22:43)
[2017-02-09 05:35] LABS: Hematocrit 38.3 % (30.3-42.9); Hemoglobin 12.3 gm/dl (10.1-14.3); Mean Corpuscular HGB Conc 32 % (30-34); Mean Corpuscular Hemoglobin 29 pg (28-32); Mean Corpuscular Volume 90 fl (79-97); Platelet Count 244 K/mm3 (140-440); Red Blood Count 4.26 M/mm3 (3.65-5.03); Red Cell Distribution Width 15.2 % (13.2-15.2); White Blood Count 16.1 K/mm3 (4.5-11.0)
[2017-02-09 05:45] LABS: Anion Gap 21 mmol/L; Blood Urea Nitrogen 18 mg/dL (7-17); Calcium 8.3 mg/dL (8.4-10.2); Carbon Dioxide 21 mmol/L (22-30); Chloride 102.5 mmol/L (98-107); Glucose 179 mg/dL (65-100); Potassium 4.4 mmol/L (3.6-5.0); Sodium 140 mmol/L (137-145)
[2017-02-09 07:01] LABS: Basophils % (Manual) 0 % (0.0-1.8); Blastocytes % (Manual) 0 %; Eosinophils % (Manual) 0 % (0.0-4.3)
[2017-02-09 07:02] LABS: Anisocytosis 1+; Diff Status Complete; Platelet Estimate Consistent w Auto
[2017-02-09] MEDS: BROVANA NEBU IH SCH ×2 (09:20→20:52)
[2017-02-09] MEDS: DUONEB *Not for PRN Use IH SCH ×2 (09:21→20:52)
[2017-02-09] MEDS: HALFPRIN EC PO SCH (09:42)
[2017-02-09] MEDS: COZAAR PO SCH (09:42)
[2017-02-09] MEDS: PROzac PO SCH (09:43)
[2017-02-09] MEDS: NORVASC PO SCH (09:43)
[2017-02-09] MEDS: ZOSYN/NS 4.5GM/100ML 4.5 GM/100 ML VIAL IV SCH ×3 (09:47→23:39)
--- NOTE | 2017-02-09 12:58 | Progress Note ---
Assessment and Plan Will continue to avoid AV blocking medications. Will continue to monitor her rhythm. - Patient Problems (1) Sinus bradycardia Current Visit: Yes Status: Acute (2) AV block Current Visit: Yes Status: Acute (3) Prolonged QT interval Current Visit: Yes Status: Acute (4) Chronic respiratory failure Current Visit: Yes Status: Chronic Qualifiers: Respiratory failure complication: hypoxia Qualified Code(s): J96.11 - Chronic respiratory failure with hypoxia (5) COPD (chronic obstructive pulmonary disease) Current Visit: Yes Status: Chronic Qualifiers: COPD type: C Chronic bronchitis type: C Emphysema type: E (6) Hypertension Current Visit: Yes Status: Chronic Qualifiers: Hypertension type: essential hypertension Qualified Code(s): I10 - Essential (primary) hypertension (7) Mild CAD Current Visit: Yes Status: Chronic (8) Mitral stenosis Current Visit: Yes Status: Chronic Qualifiers: Cardiac valve disease etiology: C Subjective Date of service: 02/09/17 Principal diagnosis: Sinus Bradycardia, 2:1 AVB, Prolonged QT, COPD, Chronic resp failure Interval history: She claims that she had a "bad" night. She experiences dyspnea with mild exacerbation. She feels better this morning. Objective Vital Signs Temp Pulse Pulse Pulse Resp Resp Resp 02/09/17 10:00 52 L 02/09/17 09:59 97.8 F 46 L 02/09/17 09:43 46 L 02/09/17 09:42 46 L 02/09/17 09:18 50 L 18 02/09/17 09:10 50 L 16 02/08/17 22:00 97.7 F 47 L 22 02/08/17 20:32 48 L 16 02/08/17 20:21 45 L 18 02/08/17 20:00 20 02/08/17 16:13 44 L 02/08/17 16:08 44 L Resp BP BP Pulse Ox 02/09/17 10:00 02/09/17 09:59 147/57 02/09/17 09:43 147/57 02/09/17 09:42 147/57 02/09/17 09:18 02/09/17 09:10 97 02/08/17 22:00 20 129/47 98 02/08/17 20:32 02/08/17 20:21 97 02/08/17 20:00 97 02/08/17 16:13 136/56 02/08/17 16:08 136/56 - Physical Examination General: No Apparent Distress HEENT: Positive: EOMI, Normocephaly, Mucus Membranes Moist Neck: Positive: neck supple, trachea midline Cardiac: Positive: Reg Rate and Rhythm, S1/S2 Lungs: Positive: clear to auscultation Neuro: Positive: Grossly Intact Abdomen: Positive: Soft, Active Bowel Sounds. Negative: Tender Skin: Positive: Clear. Negative: Rash Musculoskeletal: Normal Range of Motion Extremities: Present: normal. Absent: edema - Labs and Meds CBC 02/09/17 Range/Units 04:59 WBC 16.1 H (4.5-11.0) K/mm3 RBC 4.26 (3.65-5.03) M/mm3 Hgb 12.3 (10.1-14.3) gm/dl Hct 38.3 (30.3-42.9) % Plt Count 244 (140-440) K/mm3 Comprehensive Metabolic Panel 02/09/17 Range/Units 04:59 Sodium 140 (137-145) mmol/L Potassium 4.4 (3.6-5.0) mmol/L Chloride 102.5 (98-107) mmol/L Carbon Dioxide 21 L (22-30) mmol/L BUN 18 H (7-17) mg/dL Creatinine 0.5 L (0.7-1.2) mg/dL Glucose 179 H (65-100) mg/dL Calcium 8.3 L (8.4-10.2) mg/dL - Imaging and Cardiology EKG: image reviewed Echo: report reviewed - Telemetry EKG Rhythm: Sinus Bradycardia (with 2:1 AVB) - EKG Sinus rhythms and dysrhythmias: sinus bradycardia Repolarization changes or abnormalities: Q-T interval prolongation
[2017-02-09] MEDS ORDERED: NACL ONE (13:43)
--- NOTE | 2017-02-09 14:49 | Progress Note ---
Assessment and Plan Assessment and plan: Sepsis Acute hypoxic respiratory failure secondary to COPD exacerbation Interstitial pneumonia History of cancer s/p chemotherapy CAD Bradycardia Hypertension Leukocytosis, steroid induced - Patient is on IV Solu-Medrol, oxygen support, IV antibiotics - Cardiology consult appreciated - Pulmonary and psych consult placed - Appropriate home medications resumed, held BB - CT angio is pending DVT prophylaxis Disposition - Continue inpatient care History Interval history: Patient was seen and evaluated this morning, patient has some improvement in her SOB. Hospitalist Physical - Physical exam Narrative exam: Not in cardiopulmonary distress. The patient is obese. Vital signs as documented. Head exam is unremarkable. No scleral icterus . Neck is without jugular venous distension, thyromegaly, or carotid bruits. Lungs are decrease air entry on the lower lung zones and wheezing. Cardiac exam reveals bradycardia. Abdominal exam reveals normal bowel sounds, no masses, no organomegaly and no aortic enlargement. Extremities are nonedematous and both femoral and pedal pulses are normal. RESOURCING ADVISOR: Alert and oriented 3. No focal weakness. - Constitutional Vitals: Temp Pulse Resp BP Pulse Ox 97.8 F 52 L 18 147/57 97 02/09/17 09:59 02/09/17 10:00 02/09/17 09:18 02/09/17 09:59 02/09/17 09:10 General appearance: Present: no acute distress, obese Results - Labs CBC & Chem 7: 02/09/17 04:59 02/09/17 04:59 Labs: Laboratory Last Values WBC 16.1 K/mm3 (4.5-11.0) H 02/09/17 04:59 RBC 4.26 M/mm3 (3.65-5.03) 02/09/17 04:59 Hgb 12.3 gm/dl (10.1-14.3) 02/09/17 04:59 Hct 38.3 % (30.3-42.9) 02/09/17 04:59 MCV 90 fl (79-97) 02/09/17 04:59 MCH 29 pg (28-32) 02/09/17 04:59 MCHC 32 % (30-34) 02/09/17 04:59 RDW 15.2 % (13.2-15.2) 02/09/17 04:59 Plt Count 244 K/mm3 (140-440) 02/09/17 04:59 Lymph % (Auto) 12.6 % (13.4-35.0) L 02/07/17 10:37 [place] % (Auto) 8.5 % (0.0-7.3) H 02/07/17 10:37 Eos % (Auto) 3.2 % (0.0-4.3) 02/07/17 10:37 Baso % (Auto) 0.7 % (0.0-1.8) 02/07/17 10:37 Lymph # 1.8 K/mm3 (1.2-5.4) 02/07/17 10:37 [place] # 1.2 K/mm3 (0.0-0.8) H 02/07/17 10:37 Eos # 0.4 K/mm3 (0.0-0.4) 02/07/17 10:37 Baso # 0.1 K/mm3 (0.0-0.1) 02/07/17 10:37 Add Manual Diff Complete 02/09/17 04:59 Total Counted 100 02/09/17 04:59 Seg Neutrophils % Beater Boss 02/09/17 04:59 Seg Neuts % (Manual) 67.0 % (40.0-70.0) 02/09/17 04:59 Band Neutrophils % 11.0 % 02/09/17 04:59 Lymphocytes % (Manual) 18.0 % (13.4-35.0) 02/09/17 04:59 Reactive Lymphs % (Man) 0 % 02/09/17 04:59 Monocytes % (Manual) 4.0 % (0.0-7.3) 02/09/17 04:59 Eosinophils % (Manual) 0 % (0.0-4.3) 02/09/17 04:59 Basophils % (Manual) 0 % (0.0-1.8) 02/09/17 04:59 Metamyelocytes % 0 % 02/09/17 04:59 Myelocytes % 0 % 02/09/17 04:59 Promyelocytes % 0 % 02/09/17 04:59 Blast Cells % 0 % 02/09/17 04:59 Nucleated RBC % Not Reportable 02/09/17 04:59 Seg Neutrophils # 10.5 K/mm3 (1.8-7.7) H 02/07/17 10:37 Seg Neutrophils # Man 10.8 K/mm3 (1.8-7.7) H 02/09/17 04:59 Band Neutrophils # 1.8 K/mm3 02/09/17 04:59 Lymphocytes # (Manual) 2.9 K/mm3 (1.2-5.4) 02/09/17 04:59 Abs React Lymphs (Man) 0.0 K/mm3 02/09/17 04:59 Monocytes # (Manual) 0.6 K/mm3 (0.0-0.8) 02/09/17 04:59 Eosinophils # (Manual) 0.0 K/mm3 (0.0-0.4) 02/09/17 04:59 Basophils # (Manual) 0.0 K/mm3 (0.0-0.1) 02/09/17 04:59 Metamyelocytes # 0.0 K/mm3 02/09/17 04:59 Myelocytes # 0.0 K/mm3 02/09/17 04:59 Promyelocytes # 0.0 K/mm3 02/09/17 04:59 Blast Cells # 0.0 K/mm3 02/09/17 04:59 WBC Morphology Not Reportable 02/09/17 04:59 Hypersegmented Neuts Not Reportable 02/09/17 04:59 Hyposegmented Neuts Not Reportable 02/09/17 04:59 Hypogranular Neuts Not Reportable 02/09/17 04:59 Smudge Cells Not Reportable 02/09/17 04:59 Toxic Granulation Not Reportable 02/09/17 04:59 Toxic Vacuolation Not Reportable 02/09/17 04:59 Dohle Bodies Not Reportable 02/09/17 04:59 Pelger-Huet Anomaly Not Reportable 02/09/17 04:59 Angelito Rods Not Reportable 02/09/17 04:59 Platelet Estimate Consistent w auto 02/09/17 04:59 Clumped Platelets Not Reportable 02/09/17 04:59 Plt Clumps, EDTA Not Reportable 02/09/17 04:59 Large Platelets Not Reportable 02/09/17 04:59 Giant Platelets Not Reportable 02/09/17 04:59 Platelet Satelliting Not Reportable 02/09/17 04:59 Plt Morphology Comment Not Reportable 02/09/17 04:59 RBC Morphology Not Reportable 02/09/17 04:59 Dimorphic RBCs Not Reportable 02/09/17 04:59 Polychromasia Not Reportable 02/09/17 04:59 Hypochromasia Not Reportable 02/09/17 04:59 Poikilocytosis Not Reportable 02/09/17 04:59 Anisocytosis 1+ 02/09/17 04:59 Microcytosis Not Reportable 02/09/17 04:59 Macrocytosis Not Reportable 02/09/17 04:59 Spherocytes Not Reportable 02/09/17 04:59 Pappenheimer Bodies Not Reportable 02/09/17 04:59 Sickle Cells Not Reportable 02/09/17 04:59 Target Cells Not Reportable 02/09/17 04:59 Tear Drop Cells Not Reportable 02/09/17 04:59 Ovalocytes Not Reportable 02/09/17 04:59 Helmet Cells Not Reportable 02/09/17 04:59 Richardson-Basco Bodies Not Reportable 02/09/17 04:59 [place] Rings Not Reportable 02/09/17 04:59 [place] Cells Not Reportable 02/09/17 04:59 Bite Cells Not Reportable 02/09/17 04:59 Crenated Cell Not Reportable 02/09/17 04:59 Elliptocytes Not Reportable 02/09/17 04:59 Acanthocytes (Spur) Not Reportable 02/09/17 04:59 Rouleaux Not Reportable 02/09/17 04:59 Hemoglobin C Crystals Not Reportable 02/09/17 04:59 Schistocytes Not Reportable 02/09/17 04:59 Malaria parasites Not Reportable 02/09/17 04:59 Lamont Bodies Not Reportable 02/09/17 04:59 Hem Pathologist Commnt No 02/09/17 04:59 PT 13.9 Sec. (12.2-14.9) 02/07/17 10:37 INR 1.02 (0.87-1.13) 02/07/17 10:37 APTT < 20.0 Sec. (24.2-36.6) L 02/07/17 10:37 D-Dimer 193.52 ng/mlDDU (0-234) 02/07/17 10:37 Sodium 140 mmol/L (137-145) 02/09/17 04:59 Potassium 4.4 mmol/L (3.6-5.0) 02/09/17 04:59 Chloride 102.5 mmol/L (98-107) 02/09/17 04:59 Carbon Dioxide 21 mmol/L (22-30) L 02/09/17 04:59 Anion Gap 21 mmol/L 02/09/17 04:59 BUN 18 mg/dL (7-17) H 02/09/17 04:59 Creatinine 0.5 mg/dL (0.7-1.2) L 02/09/17 04:59 Estimated GFR > 60 ml/min 02/09/17 04:59 BUN/Creatinine Ratio 36.00 % 02/09/17 04:59 Glucose 179 mg/dL (65-100) H 02/09/17 04:59 Lactic Acid 5.00 mmol/L (0.7-2.0) H* 02/07/17 20:31 Calcium 8.3 mg/dL (8.4-10.2) L 02/09/17 04:59 Magnesium 1.50 mg/dL (1.7-2.3) L 02/08/17 09:24 Total Bilirubin 0.40 mg/dL (0.1-1.2) 02/08/17 09:24 Direct Bilirubin < 0.2 mg/dL (0-0.2) 02/07/17 10:37 AST 28 units/L (5-40) 02/08/17 09:24 ALT 33 units/L (7-56) 02/08/17 09:24 Alkaline Phosphatase 82 units/L (35-129) 02/08/17 09:24 Total Creatine Kinase 68 units/L (30-135) 02/07/17 10:37 CK-MB (CK-2) 2.5 ng/mL (0.0-4.0) 02/07/17 10:37 CK-MB (CK-2) Rel Index 3.6 (0-4) 02/07/17 10:37 Troponin T < 0.010 ng/mL (0.00-0.029) 02/07/17 13:11 NT-Pro-B Natriuret Pep 1948 pg/mL (0-900) H 02/07/17 10:37 Total Protein 6.3 g/dL (6.3-8.2) 02/08/17 09:24 Albumin 3.8 g/dL (3.9-5) L 02/08/17 09:24 Albumin/Globulin Ratio 1.5 % 02/08/17 09:24 TSH 1.080 mlU/mL (0.270-4.200) 02/08/17 09:24 Free T4 0.96 ng/dL (0.76-1.46) 02/08/17 09:24 Urine Color Yellow (Yellow) 02/07/17 10:15 Urine Turbidity Clear (Clear) 02/07/17 10:15 Urine pH 5.0 (5.0-7.0) 02/07/17 10:15 Ur Specific [place] 1.017 (1.003-1.030) 02/07/17 10:15 Urine Protein 100 mg/dl mg/dL (Negative) 02/07/17 10:15 Urine Glucose (UA) Neg mg/dL (Negative) 02/07/17 10:15 Urine Ketones Neg mg/dL (Negative) 02/07/17 10:15 Urine Blood Neg (Negative) 02/07/17 10:15 Urine Nitrite Neg (Negative) 02/07/17 10:15 Urine Bilirubin Neg (Negative) 02/07/17 10:15 Urine Urobilinogen < 2.0 mg/dL (<2.0) 02/07/17 10:15 Ur Leukocyte Esterase Sm (Negative) 02/07/17 10:15 Urine WBC (Auto) 5.0 /HPF (0.0-6.0) 02/07/17 10:15 Urine RBC (Auto) 2.0 /HPF (0.0-6.0) 02/07/17 10:15 U Epithel Cells (Auto) 1.0 /HPF (0-13.0) 02/07/17 10:15 Urine Bacteria (Auto) 1+ /HPF (Negative) 02/07/17 10:15 Urine Mucus Few /HPF 02/07/17 10:15 Blood Type AB POSITIVE 02/07/17 16:46 Antibody Screen Negative 02/07/17 16:46
--- NOTE | 2017-02-09 15:17 | Cat Scan Report ---
FINAL REPORT EXAM: CT ANGIO CHEST HISTORY: SOB TECHNIQUE: CT chest CT angiogram with reconstructions PRIORS: None. FINDINGS: There is no evidence of filling defect within the central pulmonary vasculature to suggest the presence of acute pulmonary embolus. No evidence of mediastinal pathologic lymph node enlargement Heart and great vessels are unremarkable. The aorta is normal in caliber. No focal pulmonary infiltrate identified. No pleural fluid collection seen. No acute pulmonary abnormality noted. Visualized portion of the upper abdomen demonstrates no acute change. IMPRESSION: Negative. No CT evidence of acute pulmonary embolus
--- NOTE | 2017-02-09 15:45 | Event Note ---
Date: 02/09/17 patient off floor for imaging study. Will attempt to see patient later
[2017-02-09] MEDS: PULMICORT IH SCH (20:52)
[2017-02-09] MEDS: AMBIEN PO SCH (22:34)
[2017-02-09] MEDS: LOVENOX SUB-Q SCH (22:35)
[2017-02-10] MEDS: BROVANA NEBU IH SCH ×4 (01:02→19:33)
[2017-02-10] MEDS: VANCOMYCIN 1,250 MG in NACL 0.9% 250ML 250 ML IV SCH (03:19)
[2017-02-10] MEDS: PULMICORT IH SCH ×2 (07:41→19:33)
[2017-02-10] MEDS: DUONEB *Not for PRN Use IH SCH ×2 (07:42→23:37)
[2017-02-10] MEDS: HALFPRIN EC PO SCH (09:19)
[2017-02-10] MEDS: COZAAR PO SCH (09:20)
[2017-02-10] MEDS: PROzac PO SCH (09:22)
[2017-02-10] MEDS: NORVASC PO SCH (09:22)
[2017-02-10] MEDS ORDERED: NORVASC PO SCH (10:00)
[2017-02-10] MEDS ORDERED: MAGNESIUM SULFATE 4GM/100ML 4 GM/100 ML BAG IV ONE (11:00)
[2017-02-10 11:19] LABS: Hematocrit 38.2 % (30.3-42.9); Hemoglobin 12.5 gm/dl (10.1-14.3); Mean Corpuscular HGB Conc 33 % (30-34); Mean Corpuscular Hemoglobin 30 pg (28-32); Mean Corpuscular Volume 90 fl (79-97); Red Blood Count 4.24 M/mm3 (3.65-5.03); Red Cell Distribution Width 15.6 % (13.2-15.2); White Blood Count 16.7 K/mm3 (4.5-11.0)
--- NOTE | 2017-02-10 11:27 | Consultation ---
History of Present Illness Consult date: 02/10/17 Requesting physician: TEAGAN CARMONA Reason for consult: dyspnea History of present illness: 76 y/o female with known COPD and chronic nocturnal respiratory failure, admitted with shortness of breath and chest tightness. elevated BNP on admission but per patient all cardiac work up has been negative. Was not given in lasix during this hospital stay that I can tell. Pulmonary consulted on yesterday. When I came to evaluate patient she was in CT. CT scan was negative for PE. Does shows some GGO's in a mild diffuse pattern but otherwise unremarkable. Patient states that she does feel better. She was started on steroids and very broad spec abx therapy. She will not answer questions straight forward. Past History Past Medical History: arthritis, cancer, COPD, GERD, hypertension, other (non- obstructive CAD) Past Surgical History: appendectomy, hysterectomy, total knee replacement Social history: , lives with family. denies: smoking, alcohol abuse, prescription drug abuse, IV drug use Family history: hypertension Medications and Allergies Allergies Allergy/AdvReac Type Severity Reaction Status Date / Time No Known Allergies Allergy Verified 02/07/17 09:31 Home Medications Medication Instructions Recorded Confirmed Last Taken Type Arformoterol Tartrate [Brovana] 15 mcg IH BID 03/05/13 02/07/17 02/07/17 History FLUoxetine [PROzac] 20 mg PO QDAY 03/05/13 02/07/17 02/07/17 History Ipratropium [Atrovent NEB] 0.5 mg IH DAILY 03/05/13 02/07/17 08/27/16 History Losartan [Cozaar] 50 mg PO QDAY 03/05/13 02/07/17 02/07/17 History Metoprolol Xl [Metoprolol 25 mg PO QDAY 03/05/13 02/07/17 02/07/17 History SUCCINATE ER TAB] Rosuvastatin Calcium [Crestor] 10 mg PO HS 03/05/13 02/07/17 02/07/17 History Zolpidem [Ambien] 10 mg PO HS 03/05/13 02/07/17 02/05/17 History amLODIPine [Norvasc] 5 mg PO DAILY 03/05/13 02/07/17 02/07/17 History Tiotropium [Spiriva] 2 puff IH QDAY 05/07/15 02/07/17 08/27/16 History Aspirin EC [Aspirin Enteric Coated 81 mg PO QDAY 08/28/16 02/07/17 02/07/17 History TAB] Acetaminophen/Diphenhydramine 1 each PO PRN PRN 02/07/17 02/07/17 Unknown History [Tylenol Pm Ex-Strength Caplet] Active Meds: Active Medications Acetaminophen (Tylenol) 650 mg PO Q4H PRN PRN Reason: Pain MILD(1-3)/Fever >100.5/LOONEY Albuterol (Proventil) 2.5 mg IH Q4HRT PRN PRN Reason: Shortness Of Breath Last Admin: 02/08/17 07:49 Dose: 2.5 mg Albuterol/Ipratropium (Duoneb *Not For Prn Use*) 1 ampul IH BIDRT [facility] Last Admin: 02/10/17 07:42 Dose: Not Given Amlodipine Besylate (Norvasc) 10 mg PO DAILY [facility] Arformoterol Tartrate (Brovana Nebu) 15 mcg IH BID [facility] Last Admin: 02/10/17 09:29 Dose: Not Given Aspirin (Halfprin Ec) 81 mg PO QDAY [facility] Last Admin: 02/10/17 09:19 Dose: 81 mg Atorvastatin Calcium (Lipitor) 20 mg PO QHS [facility] Last Admin: 02/09/17 22:34 Dose: 20 mg Budesonide (Pulmicort) 0.5 mg IH Q12HRT [facility] Last Admin: 02/10/17 07:41 Dose: 0.5 mg Enoxaparin Sodium (Lovenox) 40 mg SUB-Q QDAY@2200 [facility] Last Admin: 02/09/17 22:35 Dose: 40 mg Fluoxetine HCl (Prozac) 20 mg PO QDAY [facility] Last Admin: 02/10/17 09:22 Dose: 20 mg Furosemide (Lasix) 40 mg IV ONCE ONE Stop: 02/10/17 11:23 Guaifenesin (Robitussin Dm) 10 ml PO Q4H PRN PRN Reason: Cough Piperacillin Sod/Tazobactam Sod (Zosyn/Ns 4.5gm/100ml) 4.5 gm in 100 mls @ 200 mls/hr IV Q8H [facility] PRN Reason: Protocol Last Admin: 02/09/17 23:39 Dose: 200 mls/hr Vancomycin HCl 1,250 mg/ (Sodium Chloride) 262.5 mls @ 131.25 mls/hr IV Q12H [facility] Last Admin: 02/10/17 03:19 Dose: 131.25 mls/hr Magnesium Sulfate (Magnesium Sulfate 4gm/100ml) 4 gm in 100 mls @ 25 mls/hr IV ONCE ONE Stop: 02/10/17 14:59 Last Admin: 02/10/17 11:07 Dose: 25 mls/hr Losartan Potassium (Cozaar) 50 mg PO QDAY [facility] Last Admin: 02/10/17 09:20 Dose: 50 mg Methylprednisolone Sodium Succinate (Solu-Medrol) 60 mg IV Q8HR [facility] Last Admin: 02/10/17 06:02 Dose: 60 mg Vancomycin HCl (Vancomycin Pharmacy To Dose) 1 each IV PKCONSULT [facility] PRN Reason: Protocol Zolpidem Tartrate (Ambien) 10 mg PO HS [facility] Last Admin: 02/09/17 22:34 Dose: 10 mg Review of Systems All systems: negative Physical Examination Vital signs: Vital Signs Temp Pulse Resp BP Pulse Ox 98 F 62 38 H 188/74 95 02/07/17 09:31 02/07/17 09:31 02/07/17 09:31 02/07/17 09:31 02/07/17 09:31 General appearance: no acute distress, alert Eyes: non-icteric ENT: oropharynx moist Neck: supple Effort: normal Ascultation: Bilateral: rales (at the bases) Results - Laboratory Findings CBC and BMP: 02/10/17 10:45 02/09/17 04:59 PT/INR, D-dimer PT 13.9 Sec. (12.2-14.9) 02/07/17 10:37 INR 1.02 (0.87-1.13) 02/07/17 10:37 D-Dimer 193.52 ng/mlDDU (0-234) 02/07/17 10:37 Abnormal lab findings: Abnormal Labs 02/07/17 02/07/17 02/08/17 16:41 20:31 09:24 WBC RDW Seg Neutrophils # Man Carbon Dioxide 18 L BUN 19 H Creatinine 0.6 L Glucose 224 H Lactic Acid 3.20 H* 5.00 H* Calcium Magnesium 1.50 L Albumin 3.8 L 02/09/17 02/09/17 02/10/17 04:59 04:59 10:45 WBC 16.1 H 16.7 H RDW 15.6 H Seg Neutrophils # Man 10.8 H Carbon Dioxide 21 L BUN 18 H Creatinine 0.5 L Glucose 179 H Lactic Acid Calcium 8.3 L Magnesium Albumin - Diagnostic Findings CT scan - chest: image reviewed (As stated in HPI) Assessment and Plan 76 y/o female with copd, and chronic nocturnal respiratory failure admitted with worsening dyspnea and fatigue 1. Lasix 40mg IV x1 2. Please obtain echo and ask them to specifically comment on right sided pressures and presence, if any of pulmonary hypertension 3. Continue supplemental O2 4. Would stop IV abx therapy 5. Decrease steroids to be BID Thank you for this consult, will continue to follow along with you.
[2017-02-10 11:36] LABS: Blood Urea Nitrogen 15 mg/dL (7-17); Calcium 8.5 mg/dL (8.4-10.2); Carbon Dioxide 24 mmol/L (22-30); Chloride 94.1 mmol/L (98-107); Glucose 279 mg/dL (65-100); Sodium 136 mmol/L (137-145)
[2017-02-10 11:59] LABS: Anion Gap 23 mmol/L
[2017-02-10] MEDS ORDERED: LASIX IV ONE (12:00)
[2017-02-10 12:06] LABS: Anisocytosis 1+; Basophils % (Manual) 0 % (0.0-1.8); Blastocytes % (Manual) 0 %; Diff Status Complete; Platelet Estimate Consistent w Auto
[2017-02-10 12:07] LABS: Platelet Count 257 K/mm3 (140-440)
[2017-02-10] MEDS: HCTZ PO SCH (13:06)
--- NOTE | 2017-02-10 16:01 | Progress Note ---
Assessment and Plan Assessment and plan: Sepsis Acute hypoxic respiratory failure secondary to COPD exacerbation Interstitial pneumonia History of cancer s/p chemotherapy CAD Bradycardia Hypertension Leukocytosis, steroid induced - Pulmonary consulted and recommend to D/C IV antibiotics, decrease Solu-Medrol to BID, Echo - IV lasix was ordered but the patient refused - BP meds were adjusted - Cardiology consult appreciated - Appropriate home medications resumed, held BB - CT no PE DVT prophylaxis Disposition - Continue inpatient care History Interval history: Patient was seen and evaluated this morning, patient has some improvement in her SOB. Hospitalist Physical - Physical exam Narrative exam: Not in cardiopulmonary distress. The patient is obese. Vital signs as documented. Head exam is unremarkable. No scleral icterus . Neck is without jugular venous distension, thyromegaly, or carotid bruits. Lungs are decrease air entry on the lower lung zones and wheezing. Cardiac exam reveals bradycardia. Abdominal exam reveals normal bowel sounds, no masses, no organomegaly and no aortic enlargement. Extremities are nonedematous and both femoral and pedal pulses are normal. FIRER BOILER: Alert and oriented 3. No focal weakness. - Constitutional Vitals: Temp Pulse Resp BP Pulse Ox 98.9 F 51 L 20 163/54 96 02/10/17 09:15 02/10/17 10:00 02/10/17 09:15 02/10/17 09:22 02/10/17 09:15 General appearance: Present: no acute distress, obese Results - Labs CBC & Chem 7: 02/10/17 10:45 02/10/17 10:45 Labs: Laboratory Last Values WBC 16.7 K/mm3 (4.5-11.0) H 02/10/17 10:45 RBC 4.24 M/mm3 (3.65-5.03) 02/10/17 10:45 Hgb 12.5 gm/dl (10.1-14.3) 02/10/17 10:45 Hct 38.2 % (30.3-42.9) 02/10/17 10:45 MCV 90 fl (79-97) 02/10/17 10:45 MCH 30 pg (28-32) 02/10/17 10:45 MCHC 33 % (30-34) 02/10/17 10:45 RDW 15.6 % (13.2-15.2) H 02/10/17 10:45 Plt Count 257 K/mm3 (140-440) 02/10/17 10:45 Lymph % (Auto) 12.6 % (13.4-35.0) L 02/07/17 10:37 [place] % (Auto) 8.5 % (0.0-7.3) H 02/07/17 10:37 Eos % (Auto) 3.2 % (0.0-4.3) 02/07/17 10:37 Baso % (Auto) 0.7 % (0.0-1.8) 02/07/17 10:37 Lymph # 1.8 K/mm3 (1.2-5.4) 02/07/17 10:37 [place] # 1.2 K/mm3 (0.0-0.8) H 02/07/17 10:37 Eos # 0.4 K/mm3 (0.0-0.4) 02/07/17 10:37 Baso # 0.1 K/mm3 (0.0-0.1) 02/07/17 10:37 Add Manual Diff Complete 02/10/17 10:45 Total Counted 100 02/10/17 10:45 Seg Neutrophils % Chain Offbearer 02/09/17 04:59 Seg Neuts % (Manual) 87.0 % (40.0-70.0) H 02/10/17 10:45 Band Neutrophils % 3.0 % 02/10/17 10:45 Lymphocytes % (Manual) 5.0 % (13.4-35.0) L 02/10/17 10:45 Reactive Lymphs % (Man) 0 % 02/10/17 10:45 Monocytes % (Manual) 4.0 % (0.0-7.3) 02/10/17 10:45 Eosinophils % (Manual) 1.0 % (0.0-4.3) 02/10/17 10:45 Basophils % (Manual) 0 % (0.0-1.8) 02/10/17 10:45 Metamyelocytes % 0 % 02/10/17 10:45 Myelocytes % 0 % 02/10/17 10:45 Promyelocytes % 0 % 02/10/17 10:45 Blast Cells % 0 % 02/10/17 10:45 Nucleated RBC % Not Reportable 02/10/17 10:45 Seg Neutrophils # 10.5 K/mm3 (1.8-7.7) H 02/07/17 10:37 Seg Neutrophils # Man 14.5 K/mm3 (1.8-7.7) H 02/10/17 10:45 Band Neutrophils # 0.5 K/mm3 02/10/17 10:45 Lymphocytes # (Manual) 0.8 K/mm3 (1.2-5.4) L 02/10/17 10:45 Abs React Lymphs (Man) 0.0 K/mm3 02/10/17 10:45 Monocytes # (Manual) 0.7 K/mm3 (0.0-0.8) 02/10/17 10:45 Eosinophils # (Manual) 0.2 K/mm3 (0.0-0.4) 02/10/17 10:45 Basophils # (Manual) 0.0 K/mm3 (0.0-0.1) 02/10/17 10:45 Metamyelocytes # 0.0 K/mm3 02/10/17 10:45 Myelocytes # 0.0 K/mm3 02/10/17 10:45 Promyelocytes # 0.0 K/mm3 02/10/17 10:45 Blast Cells # 0.0 K/mm3 02/10/17 10:45 WBC Morphology Not Reportable 02/10/17 10:45 Hypersegmented Neuts Not Reportable 02/10/17 10:45 Hyposegmented Neuts Not Reportable 02/10/17 10:45 Hypogranular Neuts Not Reportable 02/10/17 10:45 Smudge Cells Not Reportable 02/10/17 10:45 Toxic Granulation Not Reportable 02/10/17 10:45 Toxic Vacuolation Not Reportable 02/10/17 10:45 Dohle Bodies Not Reportable 02/10/17 10:45 Pelger-Huet Anomaly Not Reportable 02/10/17 10:45 Angelito Rods Not Reportable 02/10/17 10:45 Platelet Estimate Consistent w auto 02/10/17 10:45 Clumped Platelets Not Reportable 02/10/17 10:45 Plt Clumps, EDTA Not Reportable 02/10/17 10:45 Large Platelets Not Reportable 02/10/17 10:45 Giant Platelets Not Reportable 02/10/17 10:45 Platelet Satelliting Not Reportable 02/10/17 10:45 Plt Morphology Comment Not Reportable 02/10/17 10:45 RBC Morphology Not Reportable 02/10/17 10:45 Dimorphic RBCs Not Reportable 02/10/17 10:45 Polychromasia Not Reportable 02/10/17 10:45 Hypochromasia Not Reportable 02/10/17 10:45 Poikilocytosis Not Reportable 02/10/17 10:45 Anisocytosis 1+ 02/10/17 10:45 Microcytosis Not Reportable 02/10/17 10:45 Macrocytosis Not Reportable 02/10/17 10:45 Spherocytes Not Reportable 02/10/17 10:45 Pappenheimer Bodies Not Reportable 02/10/17 10:45 Sickle Cells Not Reportable 02/10/17 10:45 Target Cells Not Reportable 02/10/17 10:45 Tear Drop Cells Not Reportable 02/10/17 10:45 Ovalocytes Not Reportable 02/10/17 10:45 Helmet Cells Not Reportable 02/10/17 10:45 [place] Bodies Not Reportable 02/10/17 10:45 [place] Rings Not Reportable 02/10/17 10:45 Rafa Cells Not Reportable 02/10/17 10:45 Bite Cells Not Reportable 02/10/17 10:45 Crenated Cell Not Reportable 02/10/17 10:45 Elliptocytes Not Reportable 02/10/17 10:45 Acanthocytes (Spur) Not Reportable 02/10/17 10:45 Rouleaux Not Reportable 02/10/17 10:45 Hemoglobin C Crystals Not Reportable 02/10/17 10:45 Schistocytes Not Reportable 02/10/17 10:45 Malaria parasites Not Reportable 02/10/17 10:45 [place] Bodies Not Reportable 02/10/17 10:45 Hem Pathologist Commnt No 02/10/17 10:45 PT 13.9 Sec. (12.2-14.9) 02/07/17 10:37 INR 1.02 (0.87-1.13) 02/07/17 10:37 APTT < 20.0 Sec. (24.2-36.6) L 02/07/17 10:37 D-Dimer 193.52 ng/mlDDU (0-234) 02/07/17 10:37 Sodium 136 mmol/L (137-145) L 02/10/17 10:45 Potassium 5.0 mmol/L (3.6-5.0) 02/10/17 10:45 Chloride 94.1 mmol/L (98-107) L 02/10/17 10:45 Carbon Dioxide 24 mmol/L (22-30) 02/10/17 10:45 Anion Gap 23 mmol/L 02/10/17 10:45 BUN 15 mg/dL (7-17) 02/10/17 10:45 Creatinine 0.5 mg/dL (0.7-1.2) L 02/10/17 10:45 Estimated GFR > 60 ml/min 02/10/17 10:45 BUN/Creatinine Ratio 30.00 % 02/10/17 10:45 Glucose 279 mg/dL (65-100) H 02/10/17 10:45 Lactic Acid 5.00 mmol/L (0.7-2.0) H* 02/07/17 20:31 Calcium 8.5 mg/dL (8.4-10.2) 02/10/17 10:45 Magnesium 1.50 mg/dL (1.7-2.3) L 02/08/17 09:24 Total Bilirubin 0.40 mg/dL (0.1-1.2) 02/08/17 09:24 Direct Bilirubin < 0.2 mg/dL (0-0.2) 02/07/17 10:37 AST 28 units/L (5-40) 02/08/17 09:24 ALT 33 units/L (7-56) 02/08/17 09:24 Alkaline Phosphatase 82 units/L (35-129) 02/08/17 09:24 Total Creatine Kinase 68 units/L (30-135) 02/07/17 10:37 CK-MB (CK-2) 2.5 ng/mL (0.0-4.0) 02/07/17 10:37 CK-MB (CK-2) Rel Index 3.6 (0-4) 02/07/17 10:37 Troponin T < 0.010 ng/mL (0.00-0.029) 02/07/17 13:11 NT-Pro-B Natriuret Pep 1948 pg/mL (0-900) H 02/07/17 10:37 Total Protein 6.3 g/dL (6.3-8.2) 02/08/17 09:24 Albumin 3.8 g/dL (3.9-5) L 02/08/17 09:24 Albumin/Globulin Ratio 1.5 % 02/08/17 09:24 TSH 1.080 mlU/mL (0.270-4.200) 02/08/17 09:24 Free T4 0.96 ng/dL (0.76-1.46) 02/08/17 09:24 Urine Color Yellow (Yellow) 02/07/17 10:15 Urine Turbidity Clear (Clear) 02/07/17 10:15 Urine pH 5.0 (5.0-7.0) 02/07/17 10:15 Ur Specific [place] 1.017 (1.003-1.030) 02/07/17 10:15 Urine Protein 100 mg/dl mg/dL (Negative) 02/07/17 10:15 Urine Glucose (UA) Neg mg/dL (Negative) 02/07/17 10:15 Urine Ketones Neg mg/dL (Negative) 02/07/17 10:15 Urine Blood Neg (Negative) 02/07/17 10:15 Urine Nitrite Neg (Negative) 02/07/17 10:15 Urine Bilirubin Neg (Negative) 02/07/17 10:15 Urine Urobilinogen < 2.0 mg/dL (<2.0) 02/07/17 10:15 Ur Leukocyte Esterase Sm (Negative) 02/07/17 10:15 Urine WBC (Auto) 5.0 /HPF (0.0-6.0) 02/07/17 10:15 Urine RBC (Auto) 2.0 /HPF (0.0-6.0) 02/07/17 10:15 U Epithel Cells (Auto) 1.0 /HPF (0-13.0) 02/07/17 10:15 Urine Bacteria (Auto) 1+ /HPF (Negative) 02/07/17 10:15 Urine Mucus Few /HPF 02/07/17 10:15 Blood Type AB POSITIVE 02/07/17 16:46 Antibody Screen Negative 02/07/17 16:46
--- NOTE | 2017-02-10 16:39 | Progress Note ---
Assessment and Plan Increase amlodipine and losartan doses. Her heath-arrhythmia appears to be resolving. - Patient Problems (1) Sinus bradycardia Current Visit: Yes Status: Acute (2) AV block Current Visit: Yes Status: Acute (3) Prolonged QT interval Current Visit: Yes Status: Acute (4) Chronic respiratory failure Current Visit: Yes Status: Chronic Qualifiers: Respiratory failure complication: hypoxia Qualified Code(s): J96.11 - Chronic respiratory failure with hypoxia (5) COPD (chronic obstructive pulmonary disease) Current Visit: Yes Status: Chronic Qualifiers: COPD type: C Chronic bronchitis type: C Emphysema type: E (6) Hypertension Current Visit: Yes Status: Chronic Qualifiers: Hypertension type: essential hypertension Qualified Code(s): I10 - Essential (primary) hypertension (7) Mild CAD Current Visit: Yes Status: Chronic (8) Mitral stenosis Current Visit: Yes Status: Chronic Qualifiers: Cardiac valve disease etiology: C Subjective Date of service: 02/10/17 Principal diagnosis: Sinus Bradycardia, 2:1 AVB, Prolonged QT, COPD, Chronic resp failure Interval history: She feels better today. In normal sinus rhythm. Objective Vital Signs Temp Pulse Pulse Resp Resp Resp BP 02/10/17 10:00 51 L 02/10/17 09:22 52 L 163/54 02/10/17 09:20 52 L 163/54 02/10/17 09:15 98.9 F 52 L 20 02/10/17 07:56 87 20 02/10/17 07:38 83 20 02/10/17 05:33 100 H 02/09/17 22:00 98.8 F 96 H 20 20 02/09/17 21:10 57 L 16 02/09/17 20:54 02/09/17 20:53 62 18 02/09/17 20:00 20 BP Pulse Ox 02/10/17 10:00 02/10/17 09:22 02/10/17 09:20 02/10/17 09:15 163/54 96 02/10/17 07:56 02/10/17 07:38 93 02/10/17 05:33 02/09/17 22:00 165/76 100 02/09/17 21:10 02/09/17 20:54 96 02/09/17 20:53 02/09/17 20:00 98 - Physical Examination General: No Apparent Distress HEENT: Positive: EOMI, Normocephaly, Mucus Membranes Moist Neck: Positive: neck supple, trachea midline Cardiac: Positive: Reg Rate and Rhythm, S1/S2 Lungs: Positive: clear to auscultation Neuro: Positive: Grossly Intact Abdomen: Positive: Soft, Active Bowel Sounds. Negative: Tender Skin: Positive: Clear. Negative: Rash Musculoskeletal: Normal Range of Motion Extremities: Present: normal. Absent: edema - Labs and Meds CBC 02/10/17 Range/Units 10:45 WBC 16.7 H (4.5-11.0) K/mm3 RBC 4.24 (3.65-5.03) M/mm3 Hgb 12.5 (10.1-14.3) gm/dl Hct 38.2 (30.3-42.9) % Plt Count 257 (140-440) K/mm3 Comprehensive Metabolic Panel 02/10/17 Range/Units 10:45 Sodium 136 L (137-145) mmol/L Potassium 5.0 (3.6-5.0) mmol/L Chloride 94.1 L (98-107) mmol/L Carbon Dioxide 24 (22-30) mmol/L BUN 15 (7-17) mg/dL Creatinine 0.5 L (0.7-1.2) mg/dL Glucose 279 H (65-100) mg/dL Calcium 8.5 (8.4-10.2) mg/dL - Imaging and Cardiology EKG: image reviewed - Telemetry EKG Rhythm: Sinus Rhythm - EKG Sinus rhythms and dysrhythmias: sinus bradycardia Repolarization changes or abnormalities: Q-T interval prolongation
[2017-02-10] MEDS: LOVENOX SUB-Q SCH (21:57)
[2017-02-10] MEDS: ROBITUSSIN DM PO PRN (21:58)
[2017-02-10] MEDS ORDERED: AMBIEN PO PRN (22:13)
[2017-02-11 06:06] LABS: Hematocrit 41.1 % (30.3-42.9); Hemoglobin 13.8 gm/dl (10.1-14.3); Mean Corpuscular HGB Conc 34 % (30-34); Mean Corpuscular Hemoglobin 30 pg (28-32); Mean Corpuscular Volume 89 fl (79-97); Platelet Count 272 K/mm3 (140-440); Red Blood Count 4.64 M/mm3 (3.65-5.03); Red Cell Distribution Width 15.2 % (13.2-15.2); White Blood Count 14.8 K/mm3 (4.5-11.0)
[2017-02-11 06:12] LABS: Blood Urea Nitrogen 15 mg/dL (7-17); Calcium 8.5 mg/dL (8.4-10.2); Carbon Dioxide 31 mmol/L (22-30); Chloride 93.3 mmol/L (98-107); Glucose 167 mg/dL (65-100); Potassium 3.7 mmol/L (3.6-5.0); Sodium 139 mmol/L (137-145)
[2017-02-11 06:13] LABS: Anion Gap 18 mmol/L
[2017-02-11 07:29] LABS: Basophils % (Manual) 0 % (0.0-1.8); Blastocytes % (Manual) 0 %; Diff Status Complete; Eosinophils % (Manual) 0 % (0.0-4.3); Platelet Estimate Consistent w Auto; RBC Morphology Normal
[2017-02-11] MEDS: PULMICORT IH SCH ×2 (07:30→21:40)
[2017-02-11] MEDS: BROVANA NEBU IH SCH ×2 (07:30→21:40)
[2017-02-11] MEDS: PROVENTIL IH PRN (07:30)
[2017-02-11] MEDS: DUONEB *Not for PRN Use IH SCH ×2 (07:36→21:41)
[2017-02-11] MEDS: HALFPRIN EC PO SCH (09:15)
[2017-02-11] MEDS: PROzac PO SCH (09:15)
[2017-02-11] MEDS: HCTZ PO SCH (09:21)
[2017-02-11] MEDS: COZAAR PO SCH (11:10)
[2017-02-11] MEDS: NORVASC PO SCH (11:10)
--- NOTE | 2017-02-11 12:40 | Progress Note ---
Assessment and Plan Stable cardiac status. We'll see when necessary. - Patient Problems (1) Sinus bradycardia Current Visit: Yes Status: Acute (2) AV block Current Visit: Yes Status: Acute (3) Prolonged QT interval Current Visit: Yes Status: Acute (4) Chronic respiratory failure Current Visit: Yes Status: Chronic Qualifiers: Respiratory failure complication: hypoxia Qualified Code(s): J96.11 - Chronic respiratory failure with hypoxia (5) COPD (chronic obstructive pulmonary disease) Current Visit: Yes Status: Chronic Qualifiers: COPD type: C Chronic bronchitis type: C Emphysema type: E (6) Hypertension Current Visit: Yes Status: Chronic Qualifiers: Hypertension type: essential hypertension Qualified Code(s): I10 - Essential (primary) hypertension (7) Mild CAD Current Visit: Yes Status: Chronic (8) Mitral stenosis Current Visit: Yes Status: Chronic Qualifiers: Cardiac valve disease etiology: C Subjective Date of service: 02/11/17 Principal diagnosis: Sinus Bradycardia, 2:1 AVB, Prolonged QT, COPD, Chronic resp failure Interval history: She still has some dyspnea on exertion, but feels better. Objective Vital Signs Temp Pulse Pulse Resp Resp Resp BP 02/11/17 10:00 98.4 F 53 L 20 140/47 02/11/17 07:46 62 16 02/11/17 07:31 60 16 02/10/17 22:00 86 18 02/10/17 20:00 18 02/10/17 19:46 55 L 18 02/10/17 19:40 02/10/17 19:38 54 L 16 Pulse Ox 02/11/17 10:00 96 02/11/17 07:46 02/11/17 07:31 96 02/10/17 22:00 02/10/17 20:00 96 02/10/17 19:46 02/10/17 19:40 93 02/10/17 19:38 - Physical Examination General: No Apparent Distress HEENT: Positive: EOMI, Normocephaly, Mucus Membranes Moist Neck: Positive: neck supple, trachea midline Cardiac: Positive: Reg Rate and Rhythm, S1/S2 Lungs: Positive: clear to auscultation Neuro: Positive: Grossly Intact Abdomen: Positive: Soft, Active Bowel Sounds. Negative: Tender Skin: Positive: Clear. Negative: Rash Musculoskeletal: Normal Range of Motion Extremities: Present: normal. Absent: edema - Labs and Meds CBC 02/11/17 Range/Units 04:56 WBC 14.8 H (4.5-11.0) K/mm3 RBC 4.64 (3.65-5.03) M/mm3 Hgb 13.8 (10.1-14.3) gm/dl Hct 41.1 (30.3-42.9) % Plt Count 272 (140-440) K/mm3 Comprehensive Metabolic Panel 02/11/17 Range/Units 04:56 Sodium 139 (137-145) mmol/L Potassium 3.7 D (3.6-5.0) mmol/L Chloride 93.3 L (98-107) mmol/L Carbon Dioxide 31 H D (22-30) mmol/L BUN 15 (7-17) mg/dL Creatinine 0.4 L (0.7-1.2) mg/dL Glucose 167 H (65-100) mg/dL Calcium 8.5 (8.4-10.2) mg/dL - Imaging and Cardiology EKG: image reviewed Echo: report reviewed - EKG Sinus rhythms and dysrhythmias: sinus bradycardia Repolarization changes or abnormalities: Q-T interval prolongation
--- NOTE | 2017-02-11 16:28 | Progress Note ---
Assessment and Plan Imp: 1. Centrilobular emphysema 2. COPD exac. 3. A/C resp. failure, hypoxia 4. Acute bronchitis 5. Non-morbid obesity Rec: 1. Reduce solumedrol again; send out on prednisone taper 2. Finished a few days of ABX; monitor 3. Pulmicort/Brovana/Duonebs -> cont. (she is on these at home) 4. Mobilize 5. F/u Echo 6. Hopefully home 1-2 days w/ close f/u in office Plan of care reviewed w/ patient, she understands/agrees Subjective Date of service: 02/11/17 Principal diagnosis: Sinus Bradycardia, 2:1 AVB, Prolonged QT, COPD, Chronic resp failure Interval history: No events. RUDOLPH still but better. Minimal cough/sputum. No chest pain. Active Medications Acetaminophen (Tylenol) 650 mg PO Q4H PRN PRN Reason: Pain MILD(1-3)/Fever >100.5/LOONEY Albuterol (Proventil) 2.5 mg IH Q4HRT PRN PRN Reason: Shortness Of Breath Last Admin: 02/11/17 07:30 Dose: 2.5 mg Albuterol/Ipratropium (Duoneb *Not For Prn Use*) 1 ampul IH BIDRT [facility] Last Admin: 02/11/17 07:36 Dose: Not Given Amlodipine Besylate (Norvasc) 10 mg PO DAILY [facility] Last Admin: 02/11/17 11:10 Dose: 10 mg Arformoterol Tartrate (Brovana Nebu) 15 mcg IH BID [facility] Last Admin: 02/11/17 07:30 Dose: Not Given Aspirin (Halfprin Ec) 81 mg PO QDAY [facility] Last Admin: 02/11/17 09:15 Dose: 81 mg Atorvastatin Calcium (Lipitor) 20 mg PO QHS [facility] Last Admin: 02/10/17 21:57 Dose: 20 mg Budesonide (Pulmicort) 0.5 mg IH Q12HRT [facility] Last Admin: 02/11/17 07:30 Dose: 0.5 mg Enoxaparin Sodium (Lovenox) 40 mg SUB-Q QDAY@2200 [facility] Last Admin: 02/10/17 21:57 Dose: 40 mg Fluoxetine HCl (Prozac) 20 mg PO QDAY [facility] Last Admin: 02/11/17 09:15 Dose: 20 mg Guaifenesin (Robitussin Dm) 10 ml PO Q4H PRN PRN Reason: Cough Last Admin: 02/10/17 21:58 Dose: 10 ml Hydrochlorothiazide (Hctz) 25 mg PO QDAY [facility] Last Admin: 02/11/17 09:21 Dose: 25 mg Losartan Potassium (Cozaar) 100 mg PO QDAY [facility] Last Admin: 02/11/17 11:10 Dose: 100 mg Methylprednisolone Sodium Succinate (Solu-Medrol) 20 mg IV Q8HR [facility] Objective Vital Signs - 12hr 02/11/17 02/11/17 02/11/17 07:31 07:46 08:00 Temperature Pulse Rate Pulse Rate [ 60 62 Anterior Bilateral Throughout] Respiratory 20 Rate Respiratory 16 16 Rate [Anterior Bilateral Throughout] Blood Pressure Blood Pressure [Right] O2 Sat by Pulse 96 96 Oximetry 02/11/17 02/11/17 10:00 11:10 Temperature 98.4 F Pulse Rate 53 L 95 H Pulse Rate [ Anterior Bilateral Throughout] Respiratory 20 Rate Respiratory Rate [Anterior Bilateral Throughout] Blood Pressure 153/65 Blood Pressure 140/47 [Right] O2 Sat by Pulse 96 Oximetry Constitutional: no acute distress, alert, other (obese) Eyes: non-icteric ENT: oropharynx moist Neck: supple Effort: normal Ascultation: Bilateral: diminished breath sounds Cardiovascular: regular rate and rhythm (no mrg) Gastrointestinal: normoactive bowel sounds, soft, non-tender, non-distended Integumentary: normal Extremities: no cyanosis, no edema, pink and warm Neurologic: normal mental status, non-focal exam, pupils equal and round, CN II- XII normal Psychiatric: mood appropriate, affect normal CBC and BMP: 02/11/17 04:56 02/11/17 04:56 ABG, PT/INR, D-dimer: PT/INR, D-dimer PT 13.9 Sec. (12.2-14.9) 02/07/17 10:37 INR 1.02 (0.87-1.13) 02/07/17 10:37 D-Dimer 193.52 ng/mlDDU (0-234) 02/07/17 10:37 Abnormal lab findings: Abnormal Labs 02/07/17 02/07/17 02/08/17 16:41 20:31 09:24 WBC RDW Seg Neuts % (Manual) Lymphocytes % (Manual) Seg Neutrophils # Man Lymphocytes # (Manual) Sodium Chloride Carbon Dioxide 18 L BUN 19 H Creatinine 0.6 L Glucose 224 H Lactic Acid 3.20 H* 5.00 H* Calcium Magnesium 1.50 L Albumin 3.8 L 02/09/17 02/09/17 02/10/17 04:59 04:59 10:45 WBC 16.1 H 16.7 H RDW 15.6 H Seg Neuts % (Manual) 87.0 H Lymphocytes % (Manual) 5.0 L Seg Neutrophils # Man 10.8 H 14.5 H Lymphocytes # (Manual) 0.8 L Sodium Chloride Carbon Dioxide 21 L BUN 18 H Creatinine 0.5 L Glucose 179 H Lactic Acid Calcium 8.3 L Magnesium Albumin 02/10/17 02/11/17 02/11/17 10:45 04:56 04:56 WBC 14.8 H RDW Seg Neuts % (Manual) 83.0 H Lymphocytes % (Manual) 7.0 L Seg Neutrophils # Man 12.3 H Lymphocytes # (Manual) 1.0 L Sodium 136 L Chloride 94.1 L 93.3 L Carbon Dioxide 31 H D BUN Creatinine 0.5 L 0.4 L Glucose 279 H 167 H Lactic Acid Calcium Magnesium Albumin Chest x-ray: report reviewed, image reviewed CT scan - chest: report reviewed, image reviewed (emphysema, lungs clear, tiny R effusion)
--- NOTE | 2017-02-11 16:54 | Progress Note ---
Assessment and Plan Assessment and plan: Sepsis Acute hypoxic respiratory failure secondary to COPD exacerbation Interstitial pneumonia History of cancer s/p chemotherapy CAD Bradycardia, AV block Hypertension Leukocytosis, steroid induced - Pulmonary consulted and recommend to D/C IV antibiotics, decrease Solu-Medrol to BID - Echo showed EF 55-60% - on amlodipine and HCTZ - Cardiology consult appreciated - Pulmonary consult appreciated - Appropriate home medications resumed, held BB - CT no PE DVT prophylaxis Disposition - poaaible dischrage at AM if continue to improve History Interval history: Patient was seen and evaluated this morning, patient's SOB improved. Hospitalist Physical - Physical exam Narrative exam: Not in cardiopulmonary distress. The patient is obese. Vital signs as documented. Head exam is unremarkable. No scleral icterus . Neck is without jugular venous distension, thyromegaly, or carotid bruits. Lungs are decrease air entry on the lower lung zones and wheezing. Cardiac exam reveals bradycardia. Abdominal exam reveals normal bowel sounds, no masses, no organomegaly and no aortic enlargement. Extremities are nonedematous and both femoral and pedal pulses are normal. DIRECTOR [employer]CHITECTURE: Alert and oriented 3. No focal weakness. - Constitutional Vitals: Temp Pulse Resp BP Pulse Ox 98.4 F 95 H 20 153/65 96 02/11/17 10:00 02/11/17 11:10 02/11/17 10:00 02/11/17 11:10 02/11/17 10:00 General appearance: Present: no acute distress, obese Results - Labs CBC & Chem 7: 02/11/17 04:56 02/11/17 04:56 Labs: Laboratory Last Values WBC 14.8 K/mm3 (4.5-11.0) H 02/11/17 04:56 RBC 4.64 M/mm3 (3.65-5.03) 02/11/17 04:56 Hgb 13.8 gm/dl (10.1-14.3) 02/11/17 04:56 Hct 41.1 % (30.3-42.9) 02/11/17 04:56 MCV 89 fl (79-97) 02/11/17 04:56 MCH 30 pg (28-32) 02/11/17 04:56 MCHC 34 % (30-34) 02/11/17 04:56 RDW 15.2 % (13.2-15.2) 02/11/17 04:56 Plt Count 272 K/mm3 (140-440) 02/11/17 04:56 Lymph % (Auto) 12.6 % (13.4-35.0) L 02/07/17 10:37 Crisp % (Auto) 8.5 % (0.0-7.3) H 02/07/17 10:37 Eos % (Auto) 3.2 % (0.0-4.3) 02/07/17 10:37 Baso % (Auto) 0.7 % (0.0-1.8) 02/07/17 10:37 Lymph # 1.8 K/mm3 (1.2-5.4) 02/07/17 10:37 Crisp # 1.2 K/mm3 (0.0-0.8) H 02/07/17 10:37 Eos # 0.4 K/mm3 (0.0-0.4) 02/07/17 10:37 Baso # 0.1 K/mm3 (0.0-0.1) 02/07/17 10:37 Add Manual Diff Complete 02/11/17 04:56 Total Counted 100 02/11/17 04:56 Seg Neutrophils % Clinic Assistant 02/09/17 04:59 Seg Neuts % (Manual) 83.0 % (40.0-70.0) H 02/11/17 04:56 Band Neutrophils % 6.0 % 02/11/17 04:56 Lymphocytes % (Manual) 7.0 % (13.4-35.0) L 02/11/17 04:56 Reactive Lymphs % (Man) 0 % 02/11/17 04:56 Monocytes % (Manual) 4.0 % (0.0-7.3) 02/11/17 04:56 Eosinophils % (Manual) 0 % (0.0-4.3) 02/11/17 04:56 Basophils % (Manual) 0 % (0.0-1.8) 02/11/17 04:56 Metamyelocytes % 0 % 02/11/17 04:56 Myelocytes % 0 % 02/11/17 04:56 Promyelocytes % 0 % 02/11/17 04:56 Blast Cells % 0 % 02/11/17 04:56 Nucleated RBC % Not Reportable 02/11/17 04:56 Seg Neutrophils # 10.5 K/mm3 (1.8-7.7) H 02/07/17 10:37 Seg Neutrophils # Man 12.3 K/mm3 (1.8-7.7) H 02/11/17 04:56 Band Neutrophils # 0.9 K/mm3 02/11/17 04:56 Lymphocytes # (Manual) 1.0 K/mm3 (1.2-5.4) L 02/11/17 04:56 Abs React Lymphs (Man) 0.0 K/mm3 02/11/17 04:56 Monocytes # (Manual) 0.6 K/mm3 (0.0-0.8) 02/11/17 04:56 Eosinophils # (Manual) 0.0 K/mm3 (0.0-0.4) 02/11/17 04:56 Basophils # (Manual) 0.0 K/mm3 (0.0-0.1) 02/11/17 04:56 Metamyelocytes # 0.0 K/mm3 02/11/17 04:56 Myelocytes # 0.0 K/mm3 02/11/17 04:56 Promyelocytes # 0.0 K/mm3 02/11/17 04:56 Blast Cells # 0.0 K/mm3 02/11/17 04:56 WBC Morphology Not Reportable 02/11/17 04:56 Hypersegmented Neuts Not Reportable 02/11/17 04:56 Hyposegmented Neuts Not Reportable 02/11/17 04:56 Hypogranular Neuts Not Reportable 02/11/17 04:56 Smudge Cells Not Reportable 02/11/17 04:56 Toxic Granulation Not Reportable 02/11/17 04:56 Toxic Vacuolation Not Reportable 02/11/17 04:56 Dohle Bodies Not Reportable 02/11/17 04:56 Pelger-Huet Anomaly Not Reportable 02/11/17 04:56 Angelito Rods Not Reportable 02/11/17 04:56 Platelet Estimate Consistent w auto 02/11/17 04:56 Clumped Platelets Not Reportable 02/11/17 04:56 Plt Clumps, EDTA Not Reportable 02/11/17 04:56 Large Platelets Not Reportable 02/11/17 04:56 Giant Platelets Not Reportable 02/11/17 04:56 Platelet Satelliting Not Reportable 02/11/17 04:56 Plt Morphology Comment Not Reportable 02/11/17 04:56 RBC Morphology Normal 02/11/17 04:56 Dimorphic RBCs Not Reportable 02/11/17 04:56 Polychromasia Not Reportable 02/11/17 04:56 Hypochromasia Not Reportable 02/11/17 04:56 Poikilocytosis Not Reportable 02/11/17 04:56 Anisocytosis Not Reportable 02/11/17 04:56 Microcytosis Not Reportable 02/11/17 04:56 Macrocytosis Not Reportable 02/11/17 04:56 Spherocytes Not Reportable 02/11/17 04:56 Pappenheimer Bodies Not Reportable 02/11/17 04:56 Sickle Cells Not Reportable 02/11/17 04:56 Target Cells Not Reportable 02/11/17 04:56 Tear Drop Cells Not Reportable 02/11/17 04:56 Ovalocytes Not Reportable 02/11/17 04:56 Helmet Cells Not Reportable 02/11/17 04:56 [place] Bodies Not Reportable 02/11/17 04:56 Elizabeth Rings Not Reportable 02/11/17 04:56 Rafa Cells Not Reportable 02/11/17 04:56 Bite Cells Not Reportable 02/11/17 04:56 Crenated Cell Not Reportable 02/11/17 04:56 Elliptocytes Not Reportable 02/11/17 04:56 Acanthocytes (Spur) Not Reportable 02/11/17 04:56 Rouleaux Not Reportable 02/11/17 04:56 Hemoglobin C Crystals Not Reportable 02/11/17 04:56 Schistocytes Not Reportable 02/11/17 04:56 Malaria parasites Not Reportable 02/11/17 04:56 Lamont Bodies Not Reportable 02/11/17 04:56 Hem Pathologist Commnt No 02/11/17 04:56 PT 13.9 Sec. (12.2-14.9) 02/07/17 10:37 INR 1.02 (0.87-1.13) 02/07/17 10:37 APTT < 20.0 Sec. (24.2-36.6) L 02/07/17 10:37 D-Dimer 193.52 ng/mlDDU (0-234) 02/07/17 10:37 Sodium 139 mmol/L (137-145) 02/11/17 04:56 Potassium 3.7 mmol/L (3.6-5.0) D 02/11/17 04:56 Chloride 93.3 mmol/L (98-107) L 02/11/17 04:56 Carbon Dioxide 31 mmol/L (22-30) H D 02/11/17 04:56 Anion Gap 18 mmol/L 02/11/17 04:56 BUN 15 mg/dL (7-17) 02/11/17 04:56 Creatinine 0.4 mg/dL (0.7-1.2) L 02/11/17 04:56 Estimated GFR > 60 ml/min 02/11/17 04:56 BUN/Creatinine Ratio 37.50 % 02/11/17 04:56 Glucose 167 mg/dL (65-100) H 02/11/17 04:56 Lactic Acid 5.00 mmol/L (0.7-2.0) H* 02/07/17 20:31 Calcium 8.5 mg/dL (8.4-10.2) 02/11/17 04:56 Magnesium 2.10 mg/dL (1.7-2.3) 02/11/17 04:56 Total Bilirubin 0.40 mg/dL (0.1-1.2) 02/08/17 09:24 Direct Bilirubin < 0.2 mg/dL (0-0.2) 02/07/17 10:37 AST 28 units/L (5-40) 02/08/17 09:24 ALT 33 units/L (7-56) 02/08/17 09:24 Alkaline Phosphatase 82 units/L (35-129) 02/08/17 09:24 Total Creatine Kinase 68 units/L (30-135) 02/07/17 10:37 CK-MB (CK-2) 2.5 ng/mL (0.0-4.0) 02/07/17 10:37 CK-MB (CK-2) Rel Index 3.6 (0-4) 02/07/17 10:37 Troponin T < 0.010 ng/mL (0.00-0.029) 02/07/17 13:11 NT-Pro-B Natriuret Pep 1948 pg/mL (0-900) H 02/07/17 10:37 Total Protein 6.3 g/dL (6.3-8.2) 02/08/17 09:24 Albumin 3.8 g/dL (3.9-5) L 02/08/17 09:24 Albumin/Globulin Ratio 1.5 % 02/08/17 09:24 TSH 1.080 mlU/mL (0.270-4.200) 02/08/17 09:24 Free T4 0.96 ng/dL (0.76-1.46) 02/08/17 09:24 Urine Color Yellow (Yellow) 02/07/17 10:15 Urine Turbidity Clear (Clear) 02/07/17 10:15 Urine pH 5.0 (5.0-7.0) 02/07/17 10:15 Ur Specific [place] 1.017 (1.003-1.030) 02/07/17 10:15 Urine Protein 100 mg/dl mg/dL (Negative) 02/07/17 10:15 Urine Glucose (UA) Neg mg/dL (Negative) 02/07/17 10:15 Urine Ketones Neg mg/dL (Negative) 02/07/17 10:15 Urine Blood Neg (Negative) 02/07/17 10:15 Urine Nitrite Neg (Negative) 02/07/17 10:15 Urine Bilirubin Neg (Negative) 02/07/17 10:15 Urine Urobilinogen < 2.0 mg/dL (<2.0) 02/07/17 10:15 Ur Leukocyte Esterase Sm (Negative) 02/07/17 10:15 Urine WBC (Auto) 5.0 /HPF (0.0-6.0) 02/07/17 10:15 Urine RBC (Auto) 2.0 /HPF (0.0-6.0) 02/07/17 10:15 U Epithel Cells (Auto) 1.0 /HPF (0-13.0) 02/07/17 10:15 Urine Bacteria (Auto) 1+ /HPF (Negative) 02/07/17 10:15 Urine Mucus Few /HPF 02/07/17 10:15 Blood Type AB POSITIVE 02/07/17 16:46 Antibody Screen Negative 02/07/17 16:46
[2017-02-11] MEDS ORDERED: AMBIEN PO ONE (21:33)
[2017-02-11] MEDS: LOVENOX SUB-Q SCH (22:11)
[2017-02-12 05:23] LABS: Hematocrit 44.6 % (30.3-42.9); Hemoglobin 14.9 gm/dl (10.1-14.3); Mean Corpuscular HGB Conc 34 % (30-34); Mean Corpuscular Hemoglobin 30 pg (28-32); Mean Corpuscular Volume 89 fl (79-97); Platelet Count 283 K/mm3 (140-440); Red Blood Count 5.02 M/mm3 (3.65-5.03); Red Cell Distribution Width 14.9 % (13.2-15.2); White Blood Count 15.5 K/mm3 (4.5-11.0)
[2017-02-12 05:46] LABS: Anion Gap 18 mmol/L; Blood Urea Nitrogen 23 mg/dL (7-17); Calcium 8.9 mg/dL (8.4-10.2); Carbon Dioxide 30 mmol/L (22-30); Chloride 89.9 mmol/L (98-107); Glucose 176 mg/dL (65-100); Potassium 3.3 mmol/L (3.6-5.0); Sodium 135 mmol/L (137-145)
[2017-02-12 06:16] LABS: Basophils % (Manual) 0 % (0.0-1.8); Blastocytes % (Manual) 0 %; Eosinophils % (Manual) 0 % (0.0-4.3)
[2017-02-12 06:17] LABS: Diff Status Complete; Platelet Estimate Consistent w Auto
[2017-02-12] MEDS: BROVANA NEBU IH SCH ×2 (07:15→10:14)
[2017-02-12] MEDS: PULMICORT IH SCH (07:15)
[2017-02-12] MEDS: DUONEB *Not for PRN Use IH SCH (07:18)
[2017-02-12] MEDS: PROzac PO SCH (09:41)
[2017-02-12] MEDS: HCTZ PO SCH (09:41)
[2017-02-12] MEDS: HALFPRIN EC PO SCH (09:42)
[2017-02-12] MEDS: NORVASC PO SCH (09:42)
[2017-02-12] MEDS: COZAAR PO SCH (09:43)
[2017-02-12] MEDS ORDERED: K-DUR PO ONE (10:00)
[2017-02-12 10:35] VITALS: BP 137/56
--- NOTE | 2017-02-12 13:00 | Discharge Summary ---
Providers - Providers Date of Admission: 02/07/17 14:11 Date of discharge: 02/12/17 Attending physician: GUY MATHIAS 02/07/17 15:52 Consult to Physician [CONS] Routine Consulting Provider: MAISHA SMITH Reason For Exam: LBBB Place consult to:: Notified:: JAMES BUI Phone number called:: [phone] Was contact made?: Yes If yes, spoke with:: JAMES Time called:: 16:55 Comment:: WENCESLAO 02/08/17 17:01 Consult to Physician [CONS] Routine Consulting Provider: THERESA LOWRY Reason For Exam: COPD Place consult to:: [facility] [employer] Notified:: YES Phone number called:: [phone] If yes, spoke with:: MEMO Time called:: 17:23 Comment:: JUAN RAMON 02/08/17 17:06 Consult to Mental Health [CONS] Routine Reason For Exam: patient is on prozac, QT prolongation Place consult to:: mental health Notified:: YES Phone number called:: [phone] Time called:: 17:20 Comment:: LEFT MESSAGE Primary care physician: OZZIE AMAYA Hospitalization Condition: Stable Hospital course: Discharge Diagnosis: Sepsis Acute hypoxic respiratory failure secondary to COPD exacerbation Interstitial pneumonia History of cancer s/p chemotherapy CAD Bradycardia, AV block Hypertension Leukocytosis, steroid induced - Pulmonary consulted and recommend to D/C IV antibiotics, decrease Solu-Medrol to BID - Echo showed EF 55-60% - on amlodipine and HCTZ - Cardiology consult appreciated - Pulmonary consult appreciated - Appropriate home medications resumed, held BB - CT no PE DVT prophylaxis Disposition: DC-01 TO HOME OR SELFCARE Time spent for discharge: 32 minutes Core Measure Documentation - Palliative Care Palliative Care/ Comfort Measures: Not Applicable - Core Measures Any of the following diagnoses?: none Exam - Constitutional Vitals: Temp Pulse Resp BP Pulse Ox 98.6 F 96 H 18 137/56 96 02/12/17 10:00 02/12/17 10:00 02/12/17 10:00 02/12/17 10:00 02/12/17 10:00 General appearance: Present: no acute distress, well-nourished - EENT Eyes: Present: PERRL ENT: hearing intact, clear oral mucosa - Neck Neck: Present: supple, normal ROM - Respiratory Respiratory effort: normal Respiratory: bilateral: CTA - Cardiovascular Heart Sounds: Present: S1 & S2. Absent: rub, click - Extremities Extremities: pulses symmetrical, No edema Peripheral Pulses: within normal limits - Abdominal General gastrointestinal: Present: soft, non-tender, non-distended, normal bowel sounds - Integumentary Integumentary: Present: clear, warm, dry - Musculoskeletal Musculoskeletal: gait normal, strength equal bilaterally - Psychiatric Psychiatric: appropriate mood/affect, intact judgment & insight - Neurologic Neurologic: CNII-XII intact, moves all extremities Plan Activity: advance as tolerated Weight Bearing Status: Weight Bear as Tolerated Diet: low fat, low salt Follow up with: OZZIE AMAYA MD [Primary Care Provider] - 3-5 Days Prescriptions: amLODIPine [Norvasc] 10 mg PO DAILY #30 tablet Hydrochlorothiazide [HCTZ] 25 mg PO QDAY #30 tablet Losartan [Cozaar] 100 mg PO QDAY #30 tablet predniSONE [Deltasone] 50 mg PO QDAY #7 tab
--- NOTE | 2017-02-12 13:05 | Event Note ---
Date: 02/12/17 Repeat EKG this AM showed NSR. Telemetry reviewed overnight with no evidence of bradyarrhythmia. Currently stable cardiac status. Pt may discharge home from cardiology standpoint on current cardiac regimen. Recommend follow up in our office with Melissa Jones NP, within 1-2 weeks of hospital discharge ([phone]). Kyung RAINEY NP / DR. AMAYA
[2017-02-12] MEDS: ROBITUSSIN DM PO PRN (13:41)
== END 2017-02-12 14:08 | disposition home or self-care (01) | DRG 871 ==
LOC: ED 09:30 → CC2 14:11
PROVIDERS: ADMIT Internal Medicine; ATTEND Internal Medicine
DX: A41.9 Sepsis, unspecified organism (principal); I50.21 Acute systolic (congestive) heart failure; J96.21 Acute and chronic respiratory failure with hypoxia; N39.0 Urinary tract infection, site not specified; J84.9 Interstitial pulmonary disease, unspecified; J44.1 Chronic obstructive pulmonary disease with (acute) exacerbation; K21.9 Gastro-esophageal reflux disease without esophagitis; I11.0 Hypertensive heart disease with heart failure; I25.10 Atherosclerotic heart disease of native coronary artery without angina pectoris; F03.90 Unspecified dementia, unspecified severity, without behavioral disturbance, psychotic disturbance, mood disturbance, and anxiety; M19.90 Unspecified osteoarthritis, unspecified site; Z96.659 Presence of unspecified artificial knee joint; I45.81 Long QT syndrome; E78.5 Hyperlipidemia, unspecified; I44.30 Unspecified atrioventricular block; I05.0 Rheumatic mitral stenosis; J20.9 Acute bronchitis, unspecified; Z79.82 Long term (current) use of aspirin; Z85.9 Personal history of malignant neoplasm, unspecified; Z82.49 Family history of ischemic heart disease and other diseases of the circulatory system; Z99.81 Dependence on supplemental oxygen; Z79.899 Other long term (current) drug therapy; Z85.72 Personal history of non-Hodgkin lymphomas; Z90.49 Acquired absence of other specified parts of digestive tract; Z90.710 Acquired absence of both cervix and uterus; Z92.21 Personal history of antineoplastic chemotherapy
CPT/HCPCS: 36415; 71010; 71275; 80048; 80053; 80074; 81001; 82140; 82550; 82553; 83735; 83880; 84439; 84443; 84484; 85007; 85025; 85379; 85610; 85730; 86850; 86900; 86901; 87040; 90686; 93005; 93010; 93306; 94640; 94760; 96365; 96366; 96367; A9270-GY; J1650; J1956; J2543; J2920; J2930; J3370; J3475; J7030; J7050; Q9967

== ENCOUNTER 2017-03-19 13:31 | Outpatient (CLI) | payer MEDICARE ==
--- NOTE | 2017-03-19 14:08 | Mammography Report ---
Spot compression magnification of calcifications upper outer quadrant right breast. Compared to 10/11/16 and 09/27/16. Findings: Coarse irregular calcifications are again identified without significant interval change. Probably benign. Impression: Probably benign. Six-month followup recommended. BI-RADS CATEGORY: 3 = Probably benign ACR BI-RADS MAMMOGRAPHIC CODES: 0 = Needs additional imaging evaluation; 1 = Negative; 2 = Benign; 3 = Probably benign; 4 = Suspicious; 5 = Malignant; 6 = Known biopsy-proven malignancy COMMENT: 1. Dense breast tissue, i.e., adenosis, fibrocystic changes, etc., may obscure an underlying neoplasm. 2. Approximately 10% of cancers are not detected with mammography. 3. A negative mammography report should not delay biopsy if a clinically suspicious mass is present. COMMENT: Patient follow-up letters are generated in [facility].
== END 2017-03-19 13:32 | disposition home or self-care (01) ==
LOC: MAMMO 13:31
PROVIDERS: ATTEND Obstetrics & Gynecology Gynecology
DX: R92.1 Mammographic calcification found on diagnostic imaging of breast (principal)
CPT/HCPCS: G0206-RT